=== PATIENT | female | born 1935 ===

== ENCOUNTER 2016-06-30 16:59 | Observation (INO) | payer MEDICARE, OTHER ==
[2016-06-30] MEDS ORDERED: Sodium Chloride 0.9% 1,000 ML IV STA ×2 (17:35→19:15)
[2016-06-30] MEDS ORDERED: Aspirin 325 mg EC Tablets PO ONE (17:45)
--- NOTE | 2016-06-30 17:49 | ED PDOC ---
HPI: Chest Pain Time Seen by Provider: 06/30/16 17:09 Chief Complaint (Nursing): Chest Pain Chief Complaint (Provider): chest pressure History Per: Patient History/Exam Limitations: no limitations Onset/Duration Of Symptoms: Days (x 2) Quality: Burning (epigastric), Pressure (chest) Additional Complaint(s): Alma Delia Edmonds is a 81 year old female, with an extensive previous medical history including atrial fibrillation CABG, diabetes, hypertension and asthma, who presents to the ED with complaints of epigastric burning ongoing for the past 2 days. Pt reports associated symptoms of chest pressure and slight shortness of breath. Pt reports symptoms have progressively worsened since onset. Pt denies any cough, fever or vomiting. Pt notes a decrease in her appetite. Pt denies any additional medical complaints at this time. PMD: none provided Past Medical History Reviewed: Historical Data, Nursing Documentation, Vital Signs Vital Signs: Last Vital Signs Temp 98.1 F 06/30/16 17:06 Pulse 96 H 06/30/16 17:06 Resp 16 06/30/16 17:06 BP 151/93 H 06/30/16 17:06 Pulse Ox 99 06/30/16 17:55 - Medical History PMH: Anemia, Anxiety, Arthritis, Asthma, Atrial Fibrillation, CAD, Cardia Arrhythmia (Afib), CHF, Diabetes (type II), Fractures, Gastritis, HTN, Hypercholesterolemia Denies: COPD, HIV, Hypothyroidism, Chronic Kidney Disease, Rheumatoid Arthritis - Surgical History Surgical History: CABG, Coronary Stent, Hernia Repair, Pacemaker, - Family History Family History: States: Unknown Family Hx - Immunization History Hx Tetanus Toxoid Vaccination: No Hx Influenza Vaccination: Yes Hx Pneumococcal Vaccination: Yes - Home Medications Home Medications: Ambulatory Orders Medication Instructions Recorded Alprazolam [Xanax] 0.25 mg PO DAILY 05/20/16 Carvedilol [Coreg] 6.25 mg PO Q12H 05/20/16 Furosemide [Lasix] 20 mg PO BID 05/20/16 Glipizide [Glipizide Xl] 5 mg PO BID 05/20/16 Losartan Potassium [Cozaar] 25 mg PO DAILY 05/20/16 Potassium Chloride [Klor-Con 10 meq PO DAILY 05/20/16 Sprinkle] SITagliptin [Januvia] 100 mg PO DAILY 05/20/16 Warfarin [Coumadin] 2 mg PO DAILY 05/20/16 Ciprofloxacin [Cipro] 250 mg PO Q12 #10 tab 05/22/16 - Allergies Allergies/Adverse Reactions: Allergies Allergy/AdvReac Type Severity Reaction Status Date / Time dust Allergy Mild RASH Uncoded 02/11/16 15:43 Review of Systems ROS Statement: Except As Marked, All Systems Reviewed And Found Negative Constitutional: Negative for: Fever Cardiovascular: Positive for: Chest Pain ("pressure") Respiratory: Positive for: Shortness of Breath (slight). Negative for: Cough Gastrointestinal: Positive for: Abdominal Pain (epigastric burning ). Negative for: Vomiting Physical Exam - Reviewed Nursing Documentation Reviewed: Yes Vital Signs Reviewed: Yes - Physical Exam Appears: Positive for: Well, Non-toxic, No Acute Distress Head Exam: Positive for: ATRAUMATIC, NORMAL INSPECTION, NORMOCEPHALIC Skin: Positive for: Normal Color, Warm, Dry Cardiovascular/Chest: Positive for: Regular Rate, Rhythm, Irregularly Irregular Respiratory: Positive for: Rhonchi (scattered). Negative for: Decreased Breath Sounds, Accessory Muscle Use, Wheezing, Respiratory Distress Gastrointestinal/Abdominal: Positive for: Normal Exam, Bowel Sounds, Soft. Negative for: Tenderness Back: Positive for: Normal Inspection Extremity: Positive for: Normal ROM Neurologic/Psych: Positive for: Alert, Oriented - Laboratory Results Result Diagrams: 06/30/16 17:37 06/30/16 17:37 - ECG O2 Sat by Pulse Oximetry: 99 (RA) Pulse Ox Interpretation: Normal Medical Decision Making Medical Decision Making: Initial Plan: * EKG * CXR * Troponin I * labs * IV NS 1,000 ml at 100 ml/hr * pepcid * aspirin * prothrombin time * reevaluation Scribe Attestation: Documented by Sveta Espinosa, acting as a scribe for Duran Moreau MD. Provider Scribe Attestation: All medical record entries made by the Scribe were at my direction and personally dictated by me. I have reviewed the chart and agree that the record accurately reflects my personal performance of the history, physical exam, medical decision making, and the department course for this patient. I have also personally directed, reviewed, and agree with the discharge instructions and disposition. Disposition - Clinical Impression Clinical Impression: Chest pain, Atrial fibrillation, Dehydration, Acute hyponatremia - Patient ED Disposition Is Patient to be Admitted: Yes - Disposition Disposition Time: 19:18 Condition: FAIR - Pt Status Changed To: Hospital Disposition Of: Observation - POA Present On Arrival: None
[2016-06-30 18:38] LABS: BASO # 0.1 K/uL (0.0-0.2); BASO % 1.3 % (0.0-2.0); EOS # 0.1 K/uL (0.0-0.7); EOS % 0.7 % (0.0-4.0); HEMATOCRIT 39.4 % (34.0-47.0); LYMPH # 0.9 K/uL (1.0-4.3); LYMPH % 10.8 % (20.0-40.0); MEAN CELL VOLUME 92.1 fl (81.0-99.0); MEAN CORPUSCULAR HEMOGLOBIN 30.7 pg (27.0-31.0); MEAN CORPUSCULAR HGB CONC 33.4 g/dL (33.0-37.0); MONO # 0.8 K/uL (0.0-0.8); MONO % 10.4 % (0.0-10.0); NEUT # 6.1 K/uL (1.8-7.0); NEUT % 76.8 % (50.0-75.0); RED CELL DISTRIBUTION WIDTH 15.4 % (11.5-14.5)
[2016-06-30 18:57] LABS: ALKALINE PHOSPHATASE 137 U/L (38-126); ALT/SGPT 38 U/L (9-52); AST/SGOT 46 U/L (14-36); BILIRUBIN,TOTAL 0.9 mg/dl (0.2-1.3); BLOOD UREA NITROGEN 37 mg/dl (7-17); CALCIUM 9.9 mg/dL (8.4-10.2); CARBON DIOXIDE 26 mmol/L (22-30); CHLORIDE 93 mmol/L (98-107); GFR AFRICAN-AMERICAN > 60; GLUCOSE,RANDOM 174 mg/dL (65-105); POTASSIUM 4.9 MMOL/L (3.6-5.0); SODIUM 130 mmol/l (132-148)
[2016-07-01] MEDS ORDERED: Sodium Chloride 0.9% 1,000 ML IV SCH (00:15)
[2016-07-01 05:12] VITALS: BMI 18.7
--- NOTE | 2016-07-01 07:14 | CARD ---
APPROVED REPORT EKG Measurement Heart [id number] <Conclusion> Atrial fibrillation Left ventricular hypertrophy with QRS widening LBBB Abnormal ECG
[2016-07-01 07:31] LABS: HEMATOCRIT 35.3 % (34.0-47.0); MEAN CELL VOLUME 91.8 fl (81.0-99.0); MEAN CORPUSCULAR HEMOGLOBIN 30.7 pg (27.0-31.0); MEAN CORPUSCULAR HGB CONC 33.4 g/dL (33.0-37.0); RED CELL DISTRIBUTION WIDTH 15.2 % (11.5-14.5)
[2016-07-01 07:51] LABS: PARTIAL THROMBOPLASTIN TIME 34.5 SECONDS (23.3-32.5)
[2016-07-01 08:06] LABS: ALKALINE PHOSPHATASE 112 U/L (38-126); ALT/SGPT 30 U/L (9-52); AST/SGOT 36 U/L (14-36); BLOOD UREA NITROGEN 26 mg/dl (7-17); CALCIUM 9.2 mg/dL (8.4-10.2); CARBON DIOXIDE 25 mmol/L (22-30); CHLORIDE 101 mmol/L (98-107); GFR AFRICAN-AMERICAN > 60; GLUCOSE,RANDOM 83 mg/dL (65-105); POTASSIUM 4.2 MMOL/L (3.6-5.0); SODIUM 137 mmol/l (132-148); TOTAL PROTEIN 7.4 G/DL (6.3-8.2)
[2016-07-01] MEDS ORDERED: POTASSIUM CHLORIDE 10 MEQ PO SCH (09:00)
[2016-07-01] MEDS: GlipiZIDE 5 mg SR Tab PO SCH ×2 (10:01→17:07)
[2016-07-01] MEDS: Potassium Chloride 10 mEq ER Tab PO SCH (10:02)
[2016-07-01] MEDS: Pantoprazole 40 mg EC Tab PO SCH (10:02)
--- NOTE | 2016-07-01 13:30 | RAD ---
Indication: Chest pain Chest x-ray Comparison: Chest x-ray and CT abdomen and pelvis with contrast both performed 05/20/16 Findings: Median sternotomy wires with evidence of CABG. Borderline cardiomegaly. Right medial lung apex density may reflect tortuous vasculature exaggerated by patient obliquity. Mild pulmonary venous congestion. Bilateral hilar prominence. No significant pleural effusion. No definite pneumothorax. Please note that chest x-ray has limited sensitivity for the detection of pulmonary masses. Limited visualization of the upper abdomen reveals elevation of the right hemidiaphragm. Lucency at the right upper abdomen may reflect air within colon as is seen in Chilaiditi's syndrome however correlate clinically to exclude possibility of free air. Abdominal aorta bi-iliac stent partially imaged on lateral view. Osseous demineralization. Multilevel degenerative changes. Loss of vertebral body heights compatible with compression fractures. Impression: Mild pulmonary venous congestion. Bilateral hilar prominence. Indeterminate medial right upper lobe lung density may reflect tortuous vasculature exaggerated by patient obliquity ; CT chest with contrast may be considered for further assessment. Limited visualization of the upper abdomen reveals elevation of the right hemidiaphragm. Lucency at the right upper abdomen may reflect air within colon as is seen in Chilaiditi's syndrome however correlate clinically to exclude possibility of free air. Further imaging with upper right abdominal radiograph may be considered. Alternatively if a CT of the chest is ordered to assess for medial right upper lobe lung density, upper abdomen will be included for assessment. Additional findings as above. Case discussed with ROBIN Ariza on 07/01/16 at 1:17 p.m.. Study was also placed in PA review folder.
--- NOTE | 2016-07-01 19:17 | CP.PCM.CON ---
History of Present Illness - History of Present Illness History of Present Illness: CC: Chest and back pain. HPI: This is a very pleasant 81 year old female who is evaluated for complaints of constant chest and back pain without trauma. He symptoms are at rest and do not radiate. She states that after she took her diabetes medications, she felt very hot inside and developed chest pain. She has had a fair appetite and denies nausea, vomiting or abdominal pain. She has been complaint with her medications and feels that she maybe taking too many meds. An ECG reveals atrial fibrillation at 98 BPM with LBBB. Chest Xray has evidence of mild CHF. She was felt to be dehydrated on admission and IVF was instituted. Review of Systems - Constitutional Constitutional: Fatigue, Lethargy, Malaise, Weakness - EENT Additional comments: Negative. - Cardiovascular Cardiovascular: Irregular Heart Rhythm - Respiratory Additional comments: Negative. - Gastrointestinal Additional comments: Negative. - Genitourinary Additional comments: Negative. - Musculoskeletal Musculoskeletal: Back Pain, Muscle Weakness, Myalgias - Integumentary Additional comments: Negative. - Neurological Additional comments: Negative. - Psychiatric Additional comments: Negative. - Endocrine Endocrine: Fatigue, Palpitations - Hematologic/Lymphatic Additional comments: Negative. Past Patient History - Infectious Disease Hx of Infectious Diseases: None - Tetanus Immunizations Tetanus Immunization: Unknown - Past Medical History & Family History Past Medical History?: Yes - Past Social History Smoking Status: Never Smoked Alcohol: None - CARDIAC Hx Cardiac Disorders: Yes (AFIB, HTN, CHF, HIGH CHOLESTEROL) Hx Atrial Fibrillation: Yes Hx Cardia Arrhythmia: Yes Hx Circulatory Problems: Yes Hx Congestive Heart Failure: Yes Hx Hypertension: Yes - PULMONARY Hx Asthma: Yes Hx Chronic Obstructive Pulmonary Disease (COPD): No - NEUROLOGICAL Hx Neurological Disorder: No - HEENT Hx HEENT Problems: Yes - RENAL Hx Chronic Kidney Disease: No - ENDOCRINE/METABOLIC Hx Endocrine Disorders: Yes (DM) Hx Diabetes Mellitus Type 2: Yes - HEMATOLOGICAL/ONCOLOGICAL Hx Blood Disorders: Yes (ANEMIA) - INTEGUMENTARY Hx Dermatological Problems: No - MUSCULOSKELETAL/RHEUMATOLOGICAL Hx Arthritis: Yes Hx Falls: No - GASTROINTESTINAL Hx Gastritis: Yes - GENITOURINARY/GYNECOLOGICAL Hx Genitourinary Disorders: Yes - PSYCHIATRIC Hx Anxiety: Yes Hx Substance Use: No - SURGICAL HISTORY Hx Angiogram: Yes Hx Coronary Artery Bypass Graft: Yes Hx Coronary Stent: Yes Other/Comment: Right lower extremity fasciotomy - ANESTHESIA Hx Anesthesia: Yes Hx Anesthesia Reactions: No Hx Malignant Hyperthermia: No Meds Allergies/Adverse Reactions: Allergies Allergy/AdvReac Type Severity Reaction Status Date / Time dust Allergy Mild RASH Uncoded 02/11/16 15:43 - Medications Medications: Current Medications Alprazolam (Xanax) 0.25 mg PO DAILY [facility] Stop: 07/08/16 09:01 Last Admin: 07/01/16 10:04 Dose: 0.25 mg Carvedilol (Coreg) 6.25 mg PO Q12H [facility] Last Admin: 07/01/16 12:40 Dose: 6.25 mg Glipizide (Glucotrol Xl) 5 mg PO BID [facility] Last Admin: 07/01/16 17:07 Dose: 5 mg Sodium Chloride (Sodium Chloride 0.9%) 1,000 mls @ 75 mls/hr IV .[id number] [facility] Stop: 07/02/16 00:16 Last Admin: 07/01/16 01:29 Dose: 75 mls/hr Losartan Potassium (Cozaar) 25 mg PO DAILY [facility] Last Admin: 07/01/16 10:00 Dose: 25 mg Pantoprazole Sodium (Protonix Ec Tab) 40 mg PO DAILY [facility] Last Admin: 07/01/16 10:02 Dose: 40 mg Potassium Chloride (Klor-Con 10) 10 meq PO DAILY [facility] Last Admin: 07/01/16 10:02 Dose: 10 meq Sitagliptin Phosphate (Januvia) 100 mg PO DAILY [facility] Last Admin: 07/01/16 10:02 Dose: 100 mg Warfarin Sodium (Coumadin) 2 mg PO QD5 [facility] PRN Reason: Protocol Stop: 07/02/16 17:01 Physical Exam - Constitutional Appears: Cachectic, Chronically Ill - Head Exam Head Exam: NORMAL INSPECTION, NORMOCEPHALIC - Eye Exam Eye Exam: Normal appearance - ENT Exam ENT Exam: Mucous Membranes Dry - Neck Exam Neck exam: Positive for: Full Rom, Normal Inspection - Respiratory Exam Additional comments: Bilateral fines crackles posteriorly. - Cardiovascular Exam Cardiovascular Exam: Irregular Rhythm, +S1, +S2, Systolic Murmur - GI/Abdominal Exam GI & Abdominal Exam: Soft - Rectal Exam Rectal Exam: Deferred - Extremities Exam Extremities exam: Positive for: normal capillary refill, normal inspection, pedal pulses present - Back Exam Back exam: NORMAL INSPECTION - Neurological Exam Neurological exam: Alert, Oriented x3 - Psychiatric Exam Psychiatric exam: Normal Affect, Normal Mood - Skin Skin Exam: Dry, Normal Color, Warm Results - Vital Signs Recent Vital Signs: Last Vital Signs Temp 97.2 F L 07/01/16 16:44 Pulse 65 07/01/16 16:44 Resp 22 07/01/16 16:44 BP 129/79 07/01/16 16:44 Pulse Ox 98 07/01/16 16:44 - Labs Result Diagrams: 07/01/16 07:00 07/01/16 07:00 Labs: Laboratory Results - last 24 hr 07/01/16 07/01/16 07/01/16 01:40 07:00 07:02 WBC 6.0 RBC 3.85 Hgb 11.8 L Hct 35.3 MCV 91.8 MCH 30.7 MCHC 33.4 RDW 15.2 H Plt Count 107 L D PT 21.3 H INR 2.05 H APTT 34.5 H Sodium 137 Potassium 4.2 Chloride 101 Carbon Dioxide 25 Anion Gap 15 BUN 26 H Creatinine 0.5 L Est GFR ( Amer) > 60 Est GFR (Non-Af Amer) > 60 POC Glucose (mg/dL) 79 Random Glucose 83 Calcium 9.2 Total Bilirubin 1.0 AST 36 D ALT 30 Alkaline Phosphatase 112 Troponin I 0.0140 Total Protein 7.4 Albumin 3.7 Globulin 3.8 Albumin/Globulin Ratio 1.0 07/01/16 07/01/16 07/01/16 10:27 10:57 16:31 WBC RBC Hgb Hct MCV MCH MCHC RDW Plt Count PT INR APTT Sodium Potassium Chloride Carbon Dioxide Anion Gap BUN Creatinine Est GFR ( Amer) Est GFR (Non-Af Amer) POC Glucose (mg/dL) 180 H 103 Random Glucose Calcium Total Bilirubin AST ALT Alkaline Phosphatase Troponin I < 0.0120 Total Protein Albumin Globulin Albumin/Globulin Ratio Assessment & Plan - Assessment and Plan (Free Text) Assessment: Atypical chest pain Back pain Arthritis CHF CAD, asymptomatic CABG Diabetes Hypertension Dyslipidemia Atrial fibrillation, rate controlled Anemia Failure to thrive Plan: Discontinue IVF Continue present cardiac medications Low dose lasix PT/OT Monitor INR Thank you for allowing me to participate in the care of this very pleasant patient - Date & Time Date: 07/01/16 Time: 19:26
--- NOTE | 2016-07-01 19:39 | CP.PCM.HP ---
History of Present Illness - History of Present Illness History of Present Illness: 81 y/o female known to me; pmhx of a-fib, chf, dmII, htn, acute on chronic hyponatremia; admitted for chest discomfort, weakness, not eating. never smoker or etoh. fam hx nc, meds, see reconcile list. nkda. PE: Vss afebrile. head; neg jvd flat. Pos [place] Heart Irreg Irreg, ns1s2 neg m Lungs, faint crackles at bases which changed with cough maneuver (?atelectasis) no c,c,e neuro gnf labs: see below, today's improved. a/p Aforementioned Dx's and Acut on chronic hyponatremia and hypovolemia dehydration. cont current meds. hold fluids since patient has been hydrated nicely and all number have improved. awaiting cario consult. Will speak with cardio about reducing dose of furosemide. may d/c in am if parameters are acceptable. Past Patient History - Infectious Disease Hx of Infectious Diseases: None - Tetanus Immunizations Tetanus Immunization: Unknown - Past Medical History & Family History Past Medical History?: Yes - Past Social History Smoking Status: Never Smoked Alcohol: None - CARDIAC Hx Cardiac Disorders: Yes (AFIB, HTN, CHF, HIGH CHOLESTEROL) Hx Atrial Fibrillation: Yes Hx Cardia Arrhythmia: Yes Hx Circulatory Problems: Yes Hx Congestive Heart Failure: Yes Hx Hypertension: Yes - PULMONARY Hx Asthma: Yes Hx Chronic Obstructive Pulmonary Disease (COPD): No - NEUROLOGICAL Hx Neurological Disorder: No - HEENT Hx HEENT Problems: Yes - RENAL Hx Chronic Kidney Disease: No - ENDOCRINE/METABOLIC Hx Endocrine Disorders: Yes (DM) Hx Diabetes Mellitus Type 2: Yes - HEMATOLOGICAL/ONCOLOGICAL Hx Blood Disorders: Yes (ANEMIA) - INTEGUMENTARY Hx Dermatological Problems: No - MUSCULOSKELETAL/RHEUMATOLOGICAL Hx Arthritis: Yes Hx Falls: No - GASTROINTESTINAL Hx Gastritis: Yes - GENITOURINARY/GYNECOLOGICAL Hx Genitourinary Disorders: Yes - PSYCHIATRIC Hx Anxiety: Yes Hx Substance Use: No - SURGICAL HISTORY Hx Angiogram: Yes Hx Coronary Artery Bypass Graft: Yes Hx Coronary Stent: Yes Other/Comment: Right lower extremity fasciotomy - ANESTHESIA Hx Anesthesia: Yes Hx Anesthesia Reactions: No Hx Malignant Hyperthermia: No Meds Allergies/Adverse Reactions: Allergies Allergy/AdvReac Type Severity Reaction Status Date / Time dust Allergy Mild RASH Uncoded 02/11/16 15:43 Results - Vital Signs Recent Vital Signs: Last Vital Signs Temp 97.2 F L 07/01/16 16:44 Pulse 65 07/01/16 16:44 Resp 22 07/01/16 16:44 BP 129/79 07/01/16 16:44 Pulse Ox 98 07/01/16 16:44 - Labs Result Diagrams: 07/01/16 07:00 07/01/16 07:00 Labs: Laboratory Results - last 24 hr 07/01/16 07/01/16 07/01/16 01:40 07:00 07:02 WBC 6.0 RBC 3.85 Hgb 11.8 L Hct 35.3 MCV 91.8 MCH 30.7 MCHC 33.4 RDW 15.2 H Plt Count 107 L D PT 21.3 H INR 2.05 H APTT 34.5 H Sodium 137 Potassium 4.2 Chloride 101 Carbon Dioxide 25 Anion Gap 15 BUN 26 H Creatinine 0.5 L Est GFR ( Amer) > 60 Est GFR (Non-Af Amer) > 60 POC Glucose (mg/dL) 79 Random Glucose 83 Calcium 9.2 Total Bilirubin 1.0 AST 36 D ALT 30 Alkaline Phosphatase 112 Troponin I 0.0140 Total Protein 7.4 Albumin 3.7 Globulin 3.8 Albumin/Globulin Ratio 1.0 07/01/16 07/01/16 07/01/16 10:27 10:57 16:31 WBC RBC Hgb Hct MCV MCH MCHC RDW Plt Count PT INR APTT Sodium Potassium Chloride Carbon Dioxide Anion Gap BUN Creatinine Est GFR ( Amer) Est GFR (Non-Af Amer) POC Glucose (mg/dL) 180 H 103 Random Glucose Calcium Total Bilirubin AST ALT Alkaline Phosphatase Troponin I < 0.0120 Total Protein Albumin Globulin Albumin/Globulin Ratio
[2016-07-01 20:24] VITALS: TEMP 98.3
[2016-07-02 05:31] VITALS: RESP 20
[2016-07-02 08:13] VITALS: PULSE 81; O2SAT 94
[2016-07-02] MEDS: GlipiZIDE 5 mg SR Tab PO SCH (09:27)
[2016-07-02] MEDS: Pantoprazole 40 mg EC Tab PO SCH (09:28)
[2016-07-02] MEDS: Potassium Chloride 10 mEq ER Tab PO SCH (09:28)
[2016-07-02 09:30] VITALS: BP 122/73
== END 2016-07-02 12:00 | disposition home or self-care (01) ==
LOC: H.ER 16:59 → H.ERHOLD 19:14 → H.ICU/CCU 07-01 04:30
PROVIDERS: ADMIT Internal Medicine Pulmonary Disease; ATTEND Internal Medicine Pulmonary Disease
DX: R07.89 Other chest pain (principal); I48.91 Unspecified atrial fibrillation; Z95.1 Presence of aortocoronary bypass graft; D64.9 Anemia, unspecified; I25.10 Atherosclerotic heart disease of native coronary artery without angina pectoris; Z95.5 Presence of coronary angioplasty implant and graft; E78.00 Pure hypercholesterolemia, unspecified; E78.5 Hyperlipidemia, unspecified; E11.9 Type 2 diabetes mellitus without complications; Z95.0 Presence of cardiac pacemaker; Z79.01 Long term (current) use of anticoagulants; I50.9 Heart failure, unspecified; I10 Essential (primary) hypertension; R62.7 Adult failure to thrive; E86.0 Dehydration; E87.1 Hypo-osmolality and hyponatremia; E86.1 Hypovolemia; M19.90 Unspecified osteoarthritis, unspecified site; M54.9 Dorsalgia, unspecified
CPT/HCPCS: 71020; 80053; 82948; 84484; 85025; 85027; 85610; 85730; 87081; 93005; 96374; 97161; 99285; G0378; G8978; G8979; G8980; J7040

== ENCOUNTER 2016-08-20 12:22 | Inpatient (IN) | payer MEDICARE, OTHER ==
[2016-08-20 12:22] VITALS: BMI 18.3
--- NOTE | 2016-08-20 13:28 | CT ---
PROCEDURE: CT HEAD WITHOUT CONTRAST. HISTORY: Generalized weakness COMPARISON: Images from noncontrast head CT performed 01/31/11 TECHNIQUE: Axial computed tomography images were obtained through the head/brain without intravenous contrast. Radiation dose: Total exam DLP = 993. 50 mGy-cm. This CT exam was performed using one or more of the following dose reduction techniques: Automated exposure control, adjustment of the mA and/or kV according to patient size, and/or use of iterative reconstruction technique. FINDINGS: Streak artifact obscures evaluation of the skullbase. HEMORRHAGE: No intracranial hemorrhage. BRAIN: Diffuse atrophy with prominence of the ventricles and sulci noted. No mass effect or edema. Bilateral basal ganglia calcifications. Intracranial atherosclerotic calcification. Scattered periventricular and subcortical white matter hypodensities, which are nonspecific, but often seen with chronic microvascular ischemic disease. Please note that MRI with diffusion imaging is more sensitive in the detection of acute ischemic event. VENTRICLES: No hydrocephalus. CALVARIUM: Unremarkable. PARANASAL SINUSES: Unremarkable as visualized. No significant inflammatory changes. MASTOID AIR CELLS: Unremarkable as visualized. No inflammatory changes. OTHER FINDINGS: None. IMPRESSION: Generalized atrophy. Nonspecific white matter changes.
[2016-08-20 13:29] LABS: BASO % 0.5 % (0.0-2.0); EOS % 0.6 % (0.0-4.0); LYMPH # 0.5 K/uL (1.0-4.3); LYMPH % 7.6 % (20.0-40.0); MEAN CORPUSCULAR HEMOGLOBIN 30.6 pg (27.0-31.0); MEAN CORPUSCULAR HGB CONC 33.3 g/dL (33.0-37.0); MEAN PLATELET VOLUME 9.4 fl (7.2-11.7); MONO # 0.7 K/uL (0.0-0.8); MONO % 10.2 % (0.0-10.0); NEUT # 5.8 K/uL (1.8-7.0); NEUT % 81.1 % (50.0-75.0); PLATELET COUNT 139 K/uL (130-400); RED CELL DISTRIBUTION WIDTH 15.1 % (11.5-14.5); WHITE BLOOD COUNT 7.1 K/uL (4.8-10.8)
[2016-08-20 13:42] LABS: ALB/GLOB RATIO 1.1 (1.0-2.1); ALKALINE PHOSPHATASE 148 U/L (38-126); ALT/SGPT 34 U/L (9-52); AST/SGOT 49 U/L (14-36); BILIRUBIN,TOTAL 1.2 mg/dl (0.2-1.3); BLOOD UREA NITROGEN 25 mg/dl (7-17); CALCIUM 9.8 mg/dL (8.4-10.2); CARBON DIOXIDE 28 mmol/L (22-30); CHLORIDE 92 mmol/L (98-107); GFR AFRICAN-AMERICAN > 60; GLUCOSE,RANDOM 196 mg/dL (65-105); POTASSIUM 4.9 MMOL/L (3.6-5.0); SODIUM 130 mmol/l (132-148); TOTAL PROTEIN 8.5 G/DL (6.3-8.2)
[2016-08-20 13:57] LABS: PARTIAL THROMBOPLASTIN TIME 33.1 SECONDS (23.3-32.5)
--- NOTE | 2016-08-20 14:10 | RAD ---
HISTORY: Generalized weakness COMPARISON: Chest x-ray performed 06/30/16 TECHNIQUE: Chest, one view. FINDINGS: LUNGS: Mild pulmonary venous congestion. Bilateral hilar prominence. Please note that chest x-ray has limited sensitivity for the detection of pulmonary masses. PLEURA: No significant pleural effusion identified. No definite pneumothorax . CARDIOVASCULAR: Median sternotomy wires with evidence of CABG. Borderline cardiomegaly. OSSEOUS STRUCTURES: Right calcific tendinitis. Degenerative changes of the spine and shoulders. Osseous demineralization. VISUALIZED UPPER ABDOMEN: Elevated right hemidiaphragm. OTHER FINDINGS: None. IMPRESSION: Mild pulmonary venous congestion. Bilateral hilar prominence.
--- NOTE | 2016-08-20 14:44 | ED PDOC ---
HPI: General Adult Time Seen by Provider: 08/20/16 12:32 Chief Complaint (Nursing): Weakness/Neurological Deficit Chief Complaint (Provider): Generalized weakness History Per: Patient, Family History/Exam Limitations: no limitations Onset/Duration Of Symptoms: Days (2) Have you had recent travel within the past 21 days to any of the following countries: [place], [place], [place] or [place]?: No Additional Complaint(s): Pt reports generalized weakness X 2 days, associated with back pain and minimal SOB. Son states she develops similar sxs every few months. Pt normally ambulates with a walker at home. Pt also c/o RLE pain (chronic) s/p ? surgery years ago. Denies CP, cough, fever, nausea, vomiting, abd pain, diarrhea. Past Medical History Reviewed: Nursing Documentation, Vital Signs Vital Signs: Last Vital Signs Temp 97.9 F 08/23/16 17:00 Pulse 86 08/23/16 17:00 Resp 18 08/23/16 17:00 BP 116/68 08/23/16 17:00 Pulse Ox 95 08/23/16 17:00 - Medical History PMH: Anemia, Anxiety, Arthritis, Asthma, Atrial Fibrillation, CAD, Cardia Arrhythmia, CHF, Diabetes, Fractures, Gastritis, HTN, Hypercholesterolemia Denies: COPD, HIV, Hypothyroidism, Chronic Kidney Disease, Rheumatoid Arthritis - Surgical History Surgical History: CABG, Coronary Stent, Hernia Repair, Pacemaker, - Family History Family History: States: Unknown Family Hx - Social History Current smoker - smoking cessation education provided: No Alcohol: None - Immunization History Hx Tetanus Toxoid Vaccination: No Hx Influenza Vaccination: Yes Hx Pneumococcal Vaccination: Yes - Home Medications Home Medications: Ambulatory Orders Medication Instructions Recorded Acetaminophen [Tylenol Extra 500 mg PO Q6H PRN 08/01/15 Strength] Docusate [Colace] 100 mg PO DAILY 08/01/15 Carvedilol [Coreg] 6.25 mg PO Q12H 05/20/16 Losartan Potassium [Cozaar] 25 mg PO DAILY 05/20/16 SITagliptin [Januvia] 100 mg PO DAILY 05/20/16 ALPRAZolam [Xanax] 0.125 mg PO HS PRN 08/20/16 Famotidine [Pepcid] 40 mg PO DAILY 08/20/16 Furosemide [Lasix] 20 mg PO DAILY 08/20/16 GlipiZIDE [Glucotrol] 5 mg PO BID 08/20/16 Polyethylene Glycol 3350 [Miralax] 17 gm PO DAILY PRN 08/20/16 Potassium Chloride [Klor-Con 10] 10 meq PO QPM 08/20/16 Zolpidem [Ambien] 5 mg PO HS tab 08/23/16 - Allergies Allergies/Adverse Reactions: Allergies Allergy/AdvReac Type Severity Reaction Status Date / Time dust Allergy Mild RASH Uncoded 08/23/16 16:49 Review of Systems Constitutional: Negative for: Fever, Chills Cardiovascular: Negative for: Chest Pain, Palpitations Respiratory: Positive for: Shortness of Breath. Negative for: Cough, Hemoptysis , Sputum, Wheezing Gastrointestinal: Negative for: Nausea, Vomiting, Abdominal Pain, Diarrhea Musculoskeletal: Positive for: Back Pain, Leg Pain Skin: Negative for: Rash, Lesions Neurological: Positive for: Weakness (Generalized). Negative for: Numbness, Incoordination, Change in Speech, Confusion, Seizures, Altered Mental Status, Headache, Dizziness Physical Exam - Reviewed Nursing Documentation Reviewed: Yes Vital Signs Reviewed: Yes - Physical Exam Appears: Positive for: Well, No Acute Distress (Thin) Head Exam: Positive for: ATRAUMATIC, NORMAL INSPECTION Skin: Positive for: Normal Color, Warm, Dry Eye Exam: Positive for: Normal appearance, EOMI, PERRL Neck: Positive for: Normal, Painless ROM, Supple Cardiovascular/Chest: Positive for: Regular Rate, Rhythm Respiratory: Positive for: Crackles (Bilateral). Negative for: Decreased Breath Sounds, Accessory Muscle Use, Wheezing Gastrointestinal/Abdominal: Positive for: Normal Exam, Bowel Sounds, Soft Extremity: Positive for: Normal ROM, Other (Chronic-appearing hyperpigmentation distal RLE). Negative for: Tenderness, Pedal Edema, Calf Tenderness, Deformity , Swelling Neurologic/Psych: Positive for: Alert, shoe parts caser II-XII, Oriented. Negative for: Motor/Sensory Deficits, Aphasia, Facial Droop - Laboratory Results Result Diagrams: 08/22/16 05:05 08/21/16 05:05 - ECG O2 Sat by Pulse Oximetry: 100 Medical Decision Making Medical Decision Makin yo with generalized weakness, SOB and RLE pain. - labs - EKG - CXR - CT chest - Doppler ultrasound Disposition - Clinical Impression Clinical Impression: CHF (congestive heart failure) - Disposition Disposition: Transfer of Care Disposition Time: 15:00 Condition: STABLE Patient Signed Over To: Lluvia Angulo
[2016-08-20 14:59] LABS: BASOPHIL 1 % (0-2); NEUTROPHIL 85 % (42-75); TOTAL CELLS COUNTED 100
[2016-08-20 15:00] LABS: LARGE PLATELETS PRESENT
[2016-08-20 15:24] LABS: URINE COLOR YELLOW (YELLOW)
--- NOTE | 2016-08-20 15:24 | US ---
PROCEDURE: Right lower extremity venous duplex Doppler. HISTORY: Pain COMPARISON: None available. TECHNIQUE: Common femoral, superficial femoral, popliteal and posterior tibial veins were evaluated. Flow was assessed with color Doppler, compressibility, assessment of phasic flow and augmentation response. FINDINGS: COMMON FEMORAL VEIN: Unremarkable. SUPERFICIAL FEMORAL VEIN: Unremarkable. POPLITEAL VEIN: Unremarkable. POSTERIOR TIBIAL VEIN: Unremarkable. OTHER FINDINGS: None. IMPRESSION: No evidence of deep venous thrombosis in the right lower extremity.
[2016-08-20 15:25] LABS: RBC URINE 2 /hpf (0-3); URINE BILIRUBIN NEGATIVE (NEGATIVE); URINE BLOOD NEGATIVE (NEGATIVE); URINE GLUCOSE (UA) NEGATIVE (Normal); URINE KETONE NEGATIVE (NEGATIVE); URINE LEUKOCYTE ESTERASE NEGATIVE Leu/uL (Negative); URINE PROTEIN NEGATIVE (NEGATIVE); URINE UROBILINOGEN 0.2-1.0 mg/dL (0.2-1.0); WBC URINE 1 /hpf (0-5)
[2016-08-20] MEDS ORDERED: Iodixanol 320 MG/ML 100 ML BOTTLE IV ONE (15:32)
[2016-08-20] MEDS ORDERED: Sodium Chloride 0.9% 50 ML IV ONE (15:32)
--- NOTE | 2016-08-20 17:28 | ED PDOC ---
- Laboratory Results Result Diagrams: 08/20/16 13:21 08/20/16 13:21 - ECG O2 Sat by Pulse Oximetry: 99 (RA) Pulse Ox Interpretation: Normal Medical Decision Making Medical Decision Makin:[address] Metz. Pending ER workup, reassessment, and final disposition. Addendum created by Hong Segura MD on 08/20/2016 6:17 PM Eastern Time ([place] & [place]) Upon review of the accompanying abdomen pelvis CT which includes the lower chest , the previously questioned filling defect in the anterolateral cusp of the pulmonary artery root is not seen and most likely represented delayed opacification of the cusp with contrast. There is no evidence of thrombus at this site. Additionally, the flow artifact noted in the main pulmonary artery and left main pulmonary artery is normal longer present on the delayed images. THIS REPORT CONTAINS FINDINGS THAT MAY BE CRITICAL TO PATIENT CARE. The findings were verbally communicated via telephone conference with Dr. Angulo at 6:15 PM EDT on 08/20/2016. The findings were acknowledged and understood. Initial Report created on 08/20/2016 6:05 PM Eastern Time ([place] & [place]) EXAM: CT Chest With Intravenous Contrast CLINICAL HISTORY: 81 years old female; Signs and symptoms; Other: Weakness; Shortness of breath; Additional info: Rle edema. Sent eYuly Colbert. Doc. With request TECHNIQUE: Multiplanar, multislice spiral CT scanning of the chest was performed following IV contrast administration from the sternal notch through the upper abdomen. Axial images were reconstructed at 1.25 mm intervals and slice thickness. Multiplanar reformatted images were created and reviewed. MIP reconstructed images were created and reviewed. This CT exam was performed using one or more of the following dose reduction techniques: automated exposure control, adjustment of the mA and/or kV according to patient size, and/or use of iterative reconstruction technique. Coronal and sagittal reformatted images were created and reviewed. CONTRAST: 80 mL of [id number] administered intravenously. COMPARISON: Comparison made with the report of the chest x-ray obtained earlier today; images unavailable. FINDINGS: Lungs: There are mild nonspecific patchy groundglass opacities in both lungs. There is mild bilateral multilobar atelectasis. There is no focal pneumonia or consolidation. Pleura: There is no pleural effusion. There is no pneumothorax. Heart: There is mild cardiomegaly. There are [place] coronary artery atherosclerotic calcifications.The patient is status post sternotomy for CABG surgery. There is no pericardial effusion. Pulmonary vasculature: There is heterogeneous opacification of the main pulmonary artery felt to represent flow artifact. However, there is a filling defect in the anterolateral cusp of the pulmonary artery worrisome for thrombus. The main pulmonary artery and left pulmonary arteries are enlarged suggestive of pulmonary arterial hypertension. There is no pulmonary embolism. Gisell and mediastinum: There is no hilar or mediastinal mass or adenopathy. There are mediastinal and left hilar calcified lymph nodes. Thoracic aorta/vascular: There is no thoracic aortic aneurysm or dissection. The imaged brachiocephalic arteries are unremarkable. Imaged upper abdomen: See accompanying abdomen pelvis CT report. Musculoskeletal system: There are multiple old thoracic vertebral body compression fractures. Chest/body wall soft tissues: Unremarkable Thyroid: There is a 3.8 x 2.3 cm right thyroid nodule with punctate calcifications. Recommend ultrasound correlation. IMPRESSION: No pulmonary embolism. Filling defect in the anterolateral cusp of the pulmonary artery worrisome for thrombus. Probable flow artifact in the main pulmonary artery. No pneumonia Mild nonspecific bilateral patchy groundglass opacities and mild bilateral multilobar atelectasis. Right thyroid nodule, recommend ultrasound correlation. Thank you for allowing us to participate in the care of your patient. Dictated and Authenticated by: Hong Segura MD 08/20/2016 6:05 PM Eastern Time ([place] & [place]) DW Dr Dunlap PMD. will give further orders when pt on floor. requests dr rodriguez for card Scribe Attestation: Documented by Rizwan Burgos, acting as a scribe for Lluvia Angulo MD. Provider Scribe Attestation: All medical record entries made by the Scribe were at my direction and personally dictated by me. I have reviewed the chart and agree that the record accurately reflects my personal performance of the history, physical exam, medical decision making, and the department course for this patient. I have also personally directed, reviewed, and agree with the discharge instructions and disposition. Disposition - Clinical Impression Clinical Impression: CHF (congestive heart failure) - POA Present On Arrival: None - Disposition Disposition: Hospitalized as Observation Patient Disposition Time: 17:00 Condition: GUARDED
[2016-08-20] MEDS ORDERED: Enoxaparin 40 mg Syringe SC STA ×2 (22:25→23:08)
[2016-08-20] MEDS ORDERED: POLYETHYLENE GLYCOL 3350 17 GM/Dose PACKET PO PRN (22:27)
[2016-08-21 07:39] LABS: HEMATOCRIT 38.3 % (34.0-47.0); MEAN CELL VOLUME 91.3 fl (81.0-99.0); MEAN CORPUSCULAR HEMOGLOBIN 30.6 pg (27.0-31.0); MEAN CORPUSCULAR HGB CONC 33.5 g/dL (33.0-37.0); RED CELL DISTRIBUTION WIDTH 14.9 % (11.5-14.5); WHITE BLOOD COUNT 6.4 K/uL (4.8-10.8)
[2016-08-21 07:41] LABS: ALKALINE PHOSPHATASE 133 U/L (38-126); ALT/SGPT 45 U/L (9-52); AST/SGOT 59 U/L (14-36); BILIRUBIN,TOTAL 0.9 mg/dl (0.2-1.3); BLOOD UREA NITROGEN 32 mg/dl (7-17); CALCIUM 9.9 mg/dL (8.4-10.2); CARBON DIOXIDE 32 mmol/L (22-30); CHLORIDE 89 mmol/L (98-107); GFR AFRICAN-AMERICAN > 60; GLUCOSE,RANDOM 45 mg/dL (65-105); MAGNESIUM 2.1 MG/DL (1.6-2.3); PHOSPHOROUS 4.5 mg/dl (2.5-4.5); SODIUM 135 mmol/l (132-148); TOTAL PROTEIN 8.1 G/DL (6.3-8.2)
--- NOTE | 2016-08-21 10:21 | CARD ---
APPROVED REPORT EKG Measurement Heart [id number] <Conclusion> Atrial fibrillation with rapid ventricular response Left bundle branch block Abnormal ECG
--- NOTE | 2016-08-21 12:42 | RAD ---
HISTORY: Congestive heart failure. Portable study 08:00 COMPARISON: August 20, 2016. FINDINGS: LUNGS: No active pulmonary disease. PLEURA: No significant pleural effusion identified, no pneumothorax apparent. CARDIOVASCULAR: Normal. OSSEOUS STRUCTURES: No significant abnormalities. VISUALIZED UPPER ABDOMEN: Normal. OTHER FINDINGS: None. IMPRESSION: No significant interval change compared to the prior examination(s).
--- NOTE | 2016-08-21 14:09 | CT ---
PROCEDURE: CT Chest, Abdomen and Pelvis with intravenous contrast HISTORY: RLE edema COMPARISON: 05/20/2016 CT abdomen and pelvis. TECHNIQUE: IV dose administered: 80 cc Visipaque 320. Mean Hounsfield unit values in the main pulmonary artery: 421.55 Radiation dose: Total exam DLP = 622.47 mGy-cm. This CT exam was performed using one or more of the following dose reduction techniques: Automated exposure control, adjustment of the mA and/or kV according to patient size, and/or use of iterative reconstruction technique. FINDINGS: CT CHEST WITH CONTRAST: LUNGS: Interstitial lung disease without focal infiltrate mass or other acute, significant pathologic process. MEDIASTINUM: Dilated main pulmonary artery 3.97 cm consistent with pulmonary arterial hypertension. LYMPH NODES: Unremarkable. PLEURA: Unremarkable. No pneumothorax. No pleural fluid. BONES: Unremarkable. OTHER FINDINGS: Enlargement of the right thyroid lobe. Elective ultrasound advised for further assessment. CT ABDOMEN AND PELVIS: LIVER: Hepatic steatosis. No focal masses. No intrahepatic bile duct dilatation or perihepatic ascites. GALLBLADDER AND BILE DUCTS: Unremarkable. PANCREAS: Unremarkable. No gross lesion or ductal dilatation. SPLEEN: Unremarkable. ADRENALS: Unremarkable. No mass. KIDNEYS AND URETERS: Unremarkable. No hydronephrosis. No solid mass. VASCULATURE: Infrarenal abdominal aortic aneurysm 6.9 by 6.8 cm. The length of the aneurysm is 5.8 cm cephalocaudal dimension. Stent graft identified. Focal hemorrhage, leak adjacent to the posterior aspect. Please refer to axial series 10 images 68 - 75. These are new findings compared to the prior study. There is no evidence of contrast/ blood I outside the confines of the [place] aorta. Stability with respect overall measurements of the aneurysm compared the prior study 05/20/2016. BOWEL: Unremarkable. No obstruction. No gross mural thickening. APPENDIX: No abnormalities to suggest acute appendicitis. No right lower quadrant inflammatory processes identified. PERITONEUM: Unremarkable. No free fluid. No free air. LYMPH NODES: Unremarkable. No enlarged lymph nodes. BLADDER: Unremarkable. REPRODUCTIVE: Unremarkable. BONES: No acute fracture. Osteopenia/multiple compression deformities thoracolumbar spine. OTHER FINDINGS: None. IMPRESSION: Evidence of extravasation of contrast/ leak from the posterior aspect of the stent graft. No evidence of contrast/ blood outside the confines of the abdominal aorta. Stable [place] aneurysm with measurements provided above. No evidence of thoracic aortic dissection or pulmonary embolism. Additional benign and/or incidental findings described above. Concordant results (preliminary interpretation) provided by [facility]. Procedure Completed: 16:12. Preliminary ([facility]) Report: Dictated and Authenticated: 18:05. Final Interpretation: 14:07. August 21, 2016.
[2016-08-21] MEDS: Potassium Chloride 10 mEq ER Tab PO SCH (18:13)
--- NOTE | 2016-08-21 21:24 | CP.PCM.HP ---
History of Present Illness - History of Present Illness History of Present Illness: 81 y/o female with pmhx of chf (diastolic dysfunction) a-fib on coumadin, HTN, DMII, SRINIVAS, admitted for several days of dyspnea and leg swelling. She denies being non compliant with diet and meds. She also has been complaining of epigastric burning. Neg Melena, neg N & V. NDKA Never smoker. Not ETOH. FH: NC She was found to have an elevated BNP in ER. S/ feeling a bit better today. O/ afebr, vss. Head: neg adeno pos kanu Heart Irr R and R, Ns1s2. Lungs, crackles throughout both lung felds. No c,c,e Neruo GNF. a/p, as mentioned. NADIA, 2/2 CHF (acute on chronic) A-Fib: DMII, HTN, SRINIVAS. Cont to maintain neg balance. Cardiology consultation. Cont PO lasix in view of labile BP. GI consult. Cont Rx for other medical problems. If patient is feeling up to it, and remains stable, and GI is not concerned, will do as GI f/u. PUD anDVT Px untile INR is therapeutic. Past Patient History - Infectious Disease Hx of Infectious Diseases: None - Tetanus Immunizations Tetanus Immunization: Unknown - Past Medical History & Family History Past Medical History?: Yes - Past Social History Smoking Status: Never Smoked - CARDIAC Hx Atrial Fibrillation: Yes Hx Cardia Arrhythmia: Yes Hx Congestive Heart Failure: Yes Hx Hypercholesterolemia: Yes Hx Hypertension: Yes - PULMONARY Hx Asthma: Yes Hx Chronic Obstructive Pulmonary Disease (COPD): No - NEUROLOGICAL Hx Neurological Disorder: No - HEENT Hx Cataracts: Yes - RENAL Hx Chronic Kidney Disease: No - ENDOCRINE/METABOLIC Hx Diabetes Mellitus Type 2: Yes Hx Hypothyroidism: No - HEMATOLOGICAL/ONCOLOGICAL Hx AIDS: No Hx Anemia: Yes Hx Blood Transfusions: Yes Hx Blood Transfusion Reaction: No Hx Human Immunodeficiency Virus (HIV): No - INTEGUMENTARY Hx Dermatological Problems: No - MUSCULOSKELETAL/RHEUMATOLOGICAL Hx Arthritis: Yes Hx Falls: Yes Hx Fractures: Yes Hx Rheumatoid Arthritis: No - GASTROINTESTINAL Hx Gastritis: Yes - GENITOURINARY/GYNECOLOGICAL Hx Genitourinary Disorders: No - PSYCHIATRIC Hx Anxiety: Yes Hx Substance Use: No - SURGICAL HISTORY Hx Cataract Extraction: Yes Hx Coronary Artery Bypass Graft: Yes Hx Coronary Stent: Yes Hx Orthopedic Surgery: Yes (Back) Other/Comment: Right leg veins Sx - ANESTHESIA Hx Anesthesia: Yes Hx Anesthesia Reactions: No Hx Malignant Hyperthermia: No Meds Allergies/Adverse Reactions: Allergies Allergy/AdvReac Type Severity Reaction Status Date / Time dust Allergy Mild RASH Uncoded 02/11/16 15:43 Results - Vital Signs Recent Vital Signs: Last Vital Signs Temp 97.7 F 08/21/16 19:13 Pulse 83 08/21/16 19:13 Resp 20 08/21/16 19:13 BP 112/67 08/21/16 19:13 Pulse Ox 96 08/21/16 19:13 - Labs Result Diagrams: 08/21/16 05:05 08/21/16 05:05 Labs: Laboratory Results - last 24 hr 08/21/16 08/21/16 08/21/16 05:05 05:05 05:05 WBC 6.4 RBC 4.19 Hgb 12.8 Hct 38.3 MCV 91.3 MCH 30.6 MCHC 33.5 RDW 14.9 H Plt Count 136 PT 18.0 H INR 1.73 H APTT 40.0 H Sodium 135 Potassium 4.0 Chloride 89 L Carbon Dioxide 32 H Anion Gap 18 BUN 32 H Creatinine 0.8 Est GFR ( Amer) > 60 Est GFR (Non-Af Amer) > 60 POC Glucose (mg/dL) Random Glucose 45 L Calcium 9.9 Phosphorus 4.5 Magnesium 2.1 Total Bilirubin 0.9 AST 59 H D ALT 45 Alkaline Phosphatase 133 H Total Protein 8.1 Albumin 4.1 Globulin 3.9 Albumin/Globulin Ratio 1.0 08/21/16 08/21/16 08/21/16 05:44 06:10 11:01 WBC RBC Hgb Hct MCV MCH MCHC RDW Plt Count PT INR APTT Sodium Potassium Chloride Carbon Dioxide Anion Gap BUN Creatinine Est GFR ( Amer) Est GFR (Non-Af Amer) POC Glucose (mg/dL) 39 L 86 160 H Random Glucose Calcium Phosphorus Magnesium Total Bilirubin AST ALT Alkaline Phosphatase Total Protein Albumin Globulin Albumin/Globulin Ratio 08/21/16 15:53 WBC RBC Hgb Hct MCV MCH MCHC RDW Plt Count PT INR APTT Sodium Potassium Chloride Carbon Dioxide Anion Gap BUN Creatinine Est GFR ( Amer) Est GFR (Non-Af Amer) POC Glucose (mg/dL) 235 H Random Glucose Calcium Phosphorus Magnesium Total Bilirubin AST ALT Alkaline Phosphatase Total Protein Albumin Globulin Albumin/Globulin Ratio
[2016-08-21] MEDS ORDERED: Enoxaparin 40 mg Syringe SC ONE (23:00)
--- NOTE | 2016-08-21 23:12 | CP.PCM.CON ---
History of Present Illness - History of Present Illness History of Present Illness: CC: Abdominal pain. HPI: Mrs. Edmonds is a pleasant 81 year old female, accompanied by her daughter, who has a PMH of CAD, s/p CABG, DM atrial fibrillation, CHF and mitral regurgitation who presents to [facility] for evaluation of abdominal pain which she states is associated with food and elevated blood glucose levels. The pain is a burning sensation and is not associated with nausea, vomiting or diarrhea. As such she has had poor PO intake in an effort to avoid hyperglycemia. She has had a GI workup many years ago and does not know of any significant abnormalities. From a cardiac point she has no complaints of chest pain or dyspnea and is compliant with her medications. Review of Systems - Constitutional Constitutional: As Per HPI, Fatigue - EENT Additional comments: Negative. - Cardiovascular Additional comments: Negative. - Respiratory Additional comments: Negative. - Gastrointestinal Gastrointestinal: Abdominal Pain, Heartburn - Genitourinary Additional comments: Negative. - Musculoskeletal Additional comments: Negative. - Integumentary Additional comments: Negative. - Neurological Additional comments: Negative. - Psychiatric Additional comments: Negative. - Endocrine Endocrine: Fatigue - Hematologic/Lymphatic Additional comments: Negative. Past Patient History - Infectious Disease Hx of Infectious Diseases: None - Tetanus Immunizations Tetanus Immunization: Unknown - Past Medical History & Family History Past Medical History?: Yes - Past Social History Smoking Status: Never Smoked Alcohol: None Drugs: Denies Home Situation {Lives}: Alone - CARDIAC Hx Atrial Fibrillation: Yes Hx Cardia Arrhythmia: Yes Hx Congestive Heart Failure: Yes Hx Hypercholesterolemia: Yes Hx Hypertension: Yes - PULMONARY Hx Asthma: Yes Hx Chronic Obstructive Pulmonary Disease (COPD): No - NEUROLOGICAL Hx Neurological Disorder: No - HEENT Hx Cataracts: Yes - RENAL Hx Chronic Kidney Disease: No - ENDOCRINE/METABOLIC Hx Diabetes Mellitus Type 2: Yes Hx Hypothyroidism: No - HEMATOLOGICAL/ONCOLOGICAL Hx AIDS: No Hx Anemia: Yes Hx Blood Transfusions: Yes Hx Blood Transfusion Reaction: No Hx Human Immunodeficiency Virus (HIV): No - INTEGUMENTARY Hx Dermatological Problems: No - MUSCULOSKELETAL/RHEUMATOLOGICAL Hx Arthritis: Yes Hx Falls: Yes Hx Fractures: Yes Hx Rheumatoid Arthritis: No - GASTROINTESTINAL Hx Gastritis: Yes - GENITOURINARY/GYNECOLOGICAL Hx Genitourinary Disorders: No - PSYCHIATRIC Hx Anxiety: Yes Hx Substance Use: No - SURGICAL HISTORY Hx Cataract Extraction: Yes Hx Coronary Artery Bypass Graft: Yes Hx Coronary Stent: Yes Hx Orthopedic Surgery: Yes (Back) Other/Comment: Right leg veins Sx - ANESTHESIA Hx Anesthesia: Yes Hx Anesthesia Reactions: No Hx Malignant Hyperthermia: No Meds Allergies/Adverse Reactions: Allergies Allergy/AdvReac Type Severity Reaction Status Date / Time dust Allergy Mild RASH Uncoded 02/11/16 15:43 - Medications Medications: Current Medications Alprazolam (Xanax) 0.125 mg PO HS PRN PRN Reason: Anxiety Stop: 08/27/16 22:28 Carvedilol (Coreg) 6.25 mg PO Q12H [facility] Last Admin: 08/21/16 22:34 Dose: 6.25 mg Docusate Sodium (Colace) 100 mg PO DAILY [facility] Last Admin: 08/21/16 09:16 Dose: 100 mg Enoxaparin Sodium (Lovenox) 40 mg SC ONCE ONE PRN Reason: Protocol Stop: 08/21/16 23:01 Last Admin: 08/21/16 22:37 Dose: 40 mg Famotidine (Pepcid) 40 mg PO DAILY [facility] Last Admin: 08/21/16 09:18 Dose: 40 mg Furosemide (Lasix) 20 mg PO DAILY [facility] Last Admin: 08/21/16 09:18 Dose: 20 mg Glipizide (Glucotrol) 5 mg PO BID [facility] Last Admin: 08/21/16 18:13 Dose: 5 mg Losartan Potassium (Cozaar) 25 mg PO DAILY [facility] Last Admin: 08/21/16 09:17 Dose: 25 mg Polyethylene Glycol (Miralax) 17 gm PO DAILY PRN PRN Reason: Constipation Potassium Chloride (Klor-Con 10) 10 meq PO QPM [facility] Last Admin: 08/21/16 18:13 Dose: 10 meq Sitagliptin Phosphate (Januvia) 100 mg PO DAILY [facility] Last Admin: 08/21/16 09:18 Dose: 100 mg Warfarin Sodium (Coumadin) 3 mg PO ONCE ONE PRN Reason: Protocol Stop: 08/21/16 23:01 Last Admin: 08/21/16 22:35 Dose: 3 mg Zolpidem Tartrate (Ambien) 5 mg PO HS [facility] Last Admin: 08/20/16 23:12 Dose: 5 mg Physical Exam - Constitutional Appears: Well, Non-toxic, Cachectic - Head Exam Head Exam: NORMAL INSPECTION, NORMOCEPHALIC - Eye Exam Eye Exam: Normal appearance - ENT Exam ENT Exam: Mucous Membranes Moist, Normal External Ear Exam - Neck Exam Neck exam: Positive for: Full Rom, Normal Inspection - Respiratory Exam Respiratory Exam: Clear to Auscultation Bilateral, NORMAL BREATHING PATTERN - Cardiovascular Exam Cardiovascular Exam: Irregular Rhythm, +S1, +S2, Systolic Murmur - GI/Abdominal Exam GI & Abdominal Exam: Normal Bowel Sounds, Soft - Rectal Exam Rectal Exam: Deferred - Extremities Exam Extremities exam: Positive for: full ROM - Back Exam Back exam: NORMAL INSPECTION - Neurological Exam Neurological exam: Alert, Oriented x3 - Psychiatric Exam Psychiatric exam: Normal Affect, Normal Mood - Skin Skin Exam: Dry, Normal Color, Warm Results - Vital Signs Recent Vital Signs: Last Vital Signs Temp 97.7 F 08/21/16 19:13 Pulse 83 08/21/16 22:34 Resp 20 08/21/16 19:13 BP 112/67 08/21/16 22:34 Pulse Ox 96 08/21/16 19:13 - Labs Result Diagrams: 08/21/16 05:05 08/21/16 05:05 Labs: Laboratory Results - last 24 hr 08/21/16 08/21/16 08/21/16 05:05 05:05 05:05 WBC 6.4 RBC 4.19 Hgb 12.8 Hct 38.3 MCV 91.3 MCH 30.6 MCHC 33.5 RDW 14.9 H Plt Count 136 PT 18.0 H INR 1.73 H APTT 40.0 H Sodium 135 Potassium 4.0 Chloride 89 L Carbon Dioxide 32 H Anion Gap 18 BUN 32 H Creatinine 0.8 Est GFR ( Amer) > 60 Est GFR (Non-Af Amer) > 60 POC Glucose (mg/dL) Random Glucose 45 L Calcium 9.9 Phosphorus 4.5 Magnesium 2.1 Total Bilirubin 0.9 AST 59 H D ALT 45 Alkaline Phosphatase 133 H Total Protein 8.1 Albumin 4.1 Globulin 3.9 Albumin/Globulin Ratio 1.0 08/21/16 08/21/16 08/21/16 05:44 06:10 11:01 WBC RBC Hgb Hct MCV MCH MCHC RDW Plt Count PT INR APTT Sodium Potassium Chloride Carbon Dioxide Anion Gap BUN Creatinine Est GFR ( Amer) Est GFR (Non-Af Amer) POC Glucose (mg/dL) 39 L 86 160 H Random Glucose Calcium Phosphorus Magnesium Total Bilirubin AST ALT Alkaline Phosphatase Total Protein Albumin Globulin Albumin/Globulin Ratio 08/21/16 08/21/16 15:53 22:10 WBC RBC Hgb Hct MCV MCH MCHC RDW Plt Count PT INR APTT Sodium Potassium Chloride Carbon Dioxide Anion Gap BUN Creatinine Est GFR ( Amer) Est GFR (Non-Af Amer) POC Glucose (mg/dL) 235 H 96 Random Glucose Calcium Phosphorus Magnesium Total Bilirubin AST ALT Alkaline Phosphatase Total Protein Albumin Globulin Albumin/Globulin Ratio Assessment & Plan - Assessment and Plan (Free Text) Assessment: Abdominal pain, possibly due to PUD CAD CABG HTN Atrial fibrillation DM Plan: Continue present cardiac medications GI evaluation Monitor telemetry Case d/w Dr. Dunlap Will sign off as the patient is stable cardiac garcia, recall as needed - Date & Time Date: 08/21/16 Time: 15:25
[2016-08-22 06:39] LABS: HEMATOCRIT 39.5 % (34.0-47.0); MEAN CORPUSCULAR HEMOGLOBIN 30.9 pg (27.0-31.0); MEAN CORPUSCULAR HGB CONC 33.6 g/dL (33.0-37.0); RED CELL DISTRIBUTION WIDTH 15.4 % (11.5-14.5); WHITE BLOOD COUNT 6.3 K/uL (4.8-10.8)
[2016-08-22 07:14] LABS: PARTIAL THROMBOPLASTIN TIME 39.7 SECONDS (23.3-32.5)
--- NOTE | 2016-08-22 11:43 | IP.NPCORE ---
Heart Failure Core Measure - Heart Failure Ejection Fraction: Less Than 40 % Beta-Per Prescribed: Carvedilol Angiotensin II Receptor Per Prescribed: Yes AnticoagulationTherapy for Atrial Fibrillation/Atrialflutter: Yes
[2016-08-22] MEDS ORDERED: Enoxaparin 40 mg Syringe SC STA (15:56)
[2016-08-22] MEDS: Potassium Chloride 10 mEq ER Tab PO SCH (18:10)
--- NOTE | 2016-08-22 23:39 | CP.PCM.PN ---
Subjective - Subjective Subjective: 81 y/o female with pmhx of chf (diastolic dysfunction) a-fib on coumadin, HTN, DMII, SRINIVAS, admitted for several days of dyspnea and leg swelling. She denies being non compliant with diet and meds. She also has been complaining of epigastric burning. Neg Melena, neg N & V. NDKA Never smoker. Not ETOH. FH: NC She was found to have an elevated BNP in ER. S/ feeling a better today. O/ afebr, vss. Head: neg adeno pos kanu Heart Irr R and R, Ns1s2. Lungs, Much improved. Very faint crackes at bases. No c,c,e Neruo GNF. a/p, as mentioned. NADIA, 2/2 CHF (acute on chronic) A-Fib: DMII, HTN, SRINIVAS. Cont to maintain neg balance. Cardiology consultation appreciated. Cont PO lasix in view of labile BP. GI consult pending. Cont Rx for other medical problems. If patient is feeling up to it, and remains stable, and GI is not concerned, will do as GI f/u. Awaiting transfer to TCU. PUD anDVT Px untile INR is therapeutic. Objective - Vital Signs/Intake and Output Vital Signs (last 24 hours): Temp Pulse Resp BP Pulse Ox 97.7 F 86 18 121/76 98 08/22/16 20:31 08/22/16 22:35 08/22/16 20:31 08/22/16 22:35 08/22/16 20:31 - Medications Medications: Current Medications Alprazolam (Xanax) 0.125 mg PO HS PRN PRN Reason: Anxiety Stop: 08/27/16 22:28 Carvedilol (Coreg) 6.25 mg PO Q12H [facility] Last Admin: 08/22/16 22:35 Dose: 6.25 mg Docusate Sodium (Colace) 100 mg PO DAILY [facility] Last Admin: 08/22/16 09:59 Dose: 100 mg Famotidine (Pepcid) 40 mg PO DAILY [facility] Last Admin: 08/22/16 10:00 Dose: 40 mg Furosemide (Lasix) 20 mg PO DAILY [facility] Last Admin: 08/22/16 09:59 Dose: 20 mg Glipizide (Glucotrol) 5 mg PO BID [facility] Last Admin: 08/22/16 18:10 Dose: 5 mg Losartan Potassium (Cozaar) 25 mg PO DAILY [facility] Last Admin: 08/22/16 09:59 Dose: 25 mg Polyethylene Glycol (Miralax) 17 gm PO DAILY PRN PRN Reason: Constipation Potassium Chloride (Klor-Con 10) 10 meq PO QPM [facility] Last Admin: 08/22/16 18:10 Dose: 10 meq Sitagliptin Phosphate (Januvia) 100 mg PO DAILY [facility] Last Admin: 08/22/16 09:59 Dose: 100 mg Zolpidem Tartrate (Ambien) 5 mg PO HS [facility] Last Admin: 08/22/16 22:35 Dose: 5 mg - Labs Labs: 08/22/16 05:05 08/21/16 05:05 PT 19.1 SECONDS (9.6-11.2) H 08/22/16 05:05 INR 1.84 (0.92-1.08) H 08/22/16 05:05 APTT 39.7 SECONDS (23.3-32.5) H 08/22/16 05:05
[2016-08-23 04:59] VITALS: RESP 18
[2016-08-23 15:23] VITALS: BP 116/68; PULSE 86; TEMP 97.9
[2016-08-24 17:26] VITALS: O2SAT 100
--- NOTE | 2016-08-25 14:21 | CON ---
DATE: 08/22/2016 REFERRING PHYSICIAN: Dr. Dunlap REASON FOR CONSULTATION: Abdominal pain. This is an 81-year-old female with multiple medical problems, has a history of CHF with diastolic dys function, AFib on Coumadin, hypertension, diabetes, CAD. The patient had some dyspnea and leg swelli ng. GI is called small amount of heartburn/reflux. The patient is currently lying in bed, com fortable, in no apparent distress. PAST MEDICAL HISTORY: As above. PAST SURGICAL HISTORY: As above. MEDICATIONS: Have been reviewed. All other systems have been reviewed and negative apart from the HPI. PHYSICAL EXAMINATION: VITAL SIGNS: Here in the hospital, grossly unremarkable. GENERAL: A pleasant, elderly-appearing female, lying in bed, comfortable, in no apparent distress. HEAD: Normocephalic, atraumatic. EYES: Pupils equally reactive to light bilaterally. No conjunctival pallor or icterus. NECK: Supple, normal range of motion, no lymphadenopathy appreciated. LUNGS: Coarse breath sounds bilaterally. HEART: S1, S2. Regular rate and rhythm. No murmurs appreciated. ABDOMEN: Soft, nontender. Bowel sounds present. No rebound, no guarding. RECTAL: Deferred. EXTREMITIES: Pulses bilaterally. SKIN: Warm, dry and intact. NEUROLOGIC: Alert and oriented x 3. LABORATORIES: Have been reviewed. WBCs 6.3, hemoglobin .3. INR 1.8. ASSESSMENT AND PLAN: This is an 81-year-old female with abdominal pain, chest pain and heartburn. P chris for endoscopy electively as an outpatient. This is more likely secondary to coronary disease and congestive heart failure. PPI twice a day. Follow up with me in the office. Thank you for the consult. Piotr Marina MD, PhD cc:Hong Dunlap MD [id number] TT: 08/25/2016 14:20:12 Confirmation # [id number] Dictation # [id number]
== END 2016-08-23 17:37 | DRG 293 ==
LOC: H.ER 12:22 → H.ERHOLD 18:30 → H.TEL 21:33 → OBSVTOIN 22:37
PROVIDERS: ADMIT Internal Medicine Pulmonary Disease; ATTEND Internal Medicine Pulmonary Disease
DX: I11.0 Hypertensive heart disease with heart failure (principal); I48.91 Unspecified atrial fibrillation; E11.9 Type 2 diabetes mellitus without complications; K27.9 Peptic ulcer, site unspecified, unspecified as acute or chronic, without hemorrhage or perforation; Z95.1 Presence of aortocoronary bypass graft; I50.33 Acute on chronic diastolic (congestive) heart failure; E78.00 Pure hypercholesterolemia, unspecified; I25.10 Atherosclerotic heart disease of native coronary artery without angina pectoris; Z95.5 Presence of coronary angioplasty implant and graft; Z79.01 Long term (current) use of anticoagulants; I34.0 Nonrheumatic mitral (valve) insufficiency; J45.909 Unspecified asthma, uncomplicated; F41.1 Generalized anxiety disorder; K29.70 Gastritis, unspecified, without bleeding; Z95.0 Presence of cardiac pacemaker

== ENCOUNTER 2016-08-23 11:25 | Inpatient (IN) | payer OTHER ==
[2016-08-23 16:49] VITALS: BMI 17.2
[2016-08-23] MEDS: Potassium Chloride 10 mEq ER Tab PO SCH (18:52)
[2016-08-24 08:22] LABS: BASO # 0.1 K/uL (0.0-0.2); BASO % 0.9 % (0.0-2.0); EOS % 0.8 % (0.0-4.0); HEMATOCRIT 36.6 % (34.0-47.0); LYMPH # 0.8 K/uL (1.0-4.3); LYMPH % 13.7 % (20.0-40.0); MEAN CELL VOLUME 91.5 fl (81.0-99.0); MEAN CORPUSCULAR HEMOGLOBIN 30.8 pg (27.0-31.0); MEAN CORPUSCULAR HGB CONC 33.6 g/dL (33.0-37.0); MEAN PLATELET VOLUME 9.1 fl (7.2-11.7); MONO # 0.8 K/uL (0.0-0.8); MONO % 13.3 % (0.0-10.0); NEUT # 4.2 K/uL (1.8-7.0); NEUT % 71.3 % (50.0-75.0); RED CELL DISTRIBUTION WIDTH 14.8 % (11.5-14.5); WHITE BLOOD COUNT 5.9 K/uL (4.8-10.8)
[2016-08-24 08:28] LABS: PARTIAL THROMBOPLASTIN TIME 36.6 SECONDS (23.3-32.5)
[2016-08-24 08:34] LABS: BLOOD UREA NITROGEN 27 mg/dl (7-17); CALCIUM 9.3 mg/dL (8.4-10.2); CARBON DIOXIDE 29 mmol/L (22-30); CHLORIDE 94 mmol/L (98-107); GFR AFRICAN-AMERICAN > 60; GLUCOSE,RANDOM 86 mg/dL (65-105); POTASSIUM 4.8 MMOL/L (3.6-5.0); SODIUM 130 mmol/l (132-148)
[2016-08-24] MEDS: Potassium Chloride 10 mEq ER Tab PO SCH (17:26)
[2016-08-25 08:14] LABS: PARTIAL THROMBOPLASTIN TIME 37.1 SECONDS (23.3-32.5)
[2016-08-25] MEDS: Potassium Chloride 10 mEq ER Tab PO SCH (17:12)
--- NOTE | 2016-08-26 11:58 | CP.PCM.HP ---
History of Present Illness - History of Present Illness History of Present Illness: 81 y/o female admitted to for CHF ex. (diastolic acute on chronic) and treated with IV diuretics with good response. PMHx, DMII, HN, DLD,, Osteoarthritis. SRINIVAS. Insomnia. NKDA Never smoker/etoh Meds: See Med list. Patient was transferred here to TCU for Short Term Rehab. Afebrile VSS Head: neg adeno Heart. Irreg Rhythym Reg Rate NS1S2 Neg M Lungs: scaterred crackles which have improved since admission. No C,C,E Neruo GNF a/p Aforementioned DX Cont PO diuretics. Cardiology consult appreciated. Cont AC with coumadin as per INR. Cont Anti HTN. Cont Antidiabetics. Bg monitoring. Cont Rehab as per donation worker. PUD Px. Cont nutritional supplementation. Cont xanax. Cont Ambien Q HS. Past Patient History - Infectious Disease Hx of Infectious Diseases: None - Tetanus Immunizations Tetanus Immunization: Unknown - Past Medical History & Family History Past Medical History?: Yes - Past Social History Smoking Status: Never Smoked - CARDIAC Hx Atrial Fibrillation: Yes Hx Cardia Arrhythmia: Yes Hx Congestive Heart Failure: Yes Hx Hypercholesterolemia: Yes Hx Hypertension: Yes - PULMONARY Hx Asthma: Yes Hx Chronic Obstructive Pulmonary Disease (COPD): No - NEUROLOGICAL Hx Neurological Disorder: No - HEENT Hx Cataracts: Yes - RENAL Hx Chronic Kidney Disease: No - ENDOCRINE/METABOLIC Hx Diabetes Mellitus Type 2: Yes Hx Hypothyroidism: No - HEMATOLOGICAL/ONCOLOGICAL Hx AIDS: No Hx Anemia: Yes Hx Blood Transfusions: Yes Hx Blood Transfusion Reaction: No Hx Human Immunodeficiency Virus (HIV): No - INTEGUMENTARY Hx Dermatological Problems: No - MUSCULOSKELETAL/RHEUMATOLOGICAL Hx Arthritis: Yes Hx Falls: No Hx Fractures: Yes Hx Rheumatoid Arthritis: No Hx Unsteady Gait: Yes - GASTROINTESTINAL Hx Gastritis: Yes - GENITOURINARY/GYNECOLOGICAL Hx Genitourinary Disorders: No - PSYCHIATRIC Hx Anxiety: Yes Hx Substance Use: No - SURGICAL HISTORY Hx Cataract Extraction: Yes Hx Coronary Artery Bypass Graft: Yes Hx Coronary Stent: Yes Hx Orthopedic Surgery: Yes (Back) Other/Comment: Right leg veins Sx - ANESTHESIA Hx Anesthesia: Yes Hx Anesthesia Reactions: No Hx Malignant Hyperthermia: No Meds Allergies/Adverse Reactions: Allergies Allergy/AdvReac Type Severity Reaction Status Date / Time dust Allergy Mild RASH Uncoded 08/23/16 16:49 Results - Vital Signs Recent Vital Signs: Last Vital Signs Temp 97.3 F L 08/26/16 08:06 Pulse 91 H 08/26/16 08:37 Resp 20 08/26/16 08:06 BP 121/73 08/26/16 08:38 Pulse Ox 97 08/26/16 08:06 - Labs Result Diagrams: 08/24/16 06:00 08/24/16 06:00 Labs: Laboratory Results - last 24 hr 08/25/16 08/25/16 08/25/16 13:57 16:43 21:09 PT INR POC Glucose (mg/dL) 179 H 181 H 146 H 08/26/16 08/26/16 08/26/16 06:12 06:28 10:46 PT 25.3 H INR 2.43 H POC Glucose (mg/dL) 138 H 264 H
[2016-08-26] MEDS: Potassium Chloride 10 mEq ER Tab PO SCH (17:25)
[2016-08-27] MEDS: Potassium Chloride 10 mEq ER Tab PO SCH (17:31)
[2016-08-29 15:32] LABS: ALB/GLOB RATIO 1.1 (1.0-2.1); ALKALINE PHOSPHATASE 112 U/L (38-126); ALT/SGPT 42 U/L (9-52); AST/SGOT 46 U/L (14-36); BILIRUBIN,TOTAL 0.8 mg/dl (0.2-1.3); BLOOD UREA NITROGEN 20 mg/dl (7-17); CARBON DIOXIDE 23 mmol/L (22-30); CHLORIDE 91 mmol/L (98-107); GFR AFRICAN-AMERICAN > 60; GLUCOSE,RANDOM 247 mg/dL (65-105); POTASSIUM 4.4 MMOL/L (3.6-5.0); SODIUM 126 mmol/l (132-148); TOTAL PROTEIN 7.8 G/DL (6.3-8.2)
[2016-08-29] MEDS: Potassium Chloride 10 mEq ER Tab PO SCH (17:22)
[2016-08-29] MEDS: Enoxaparin 40 mg Syringe SC SCH (21:26)
[2016-08-30] MEDS: Enoxaparin 40 mg Syringe SC SCH ×2 (08:33→22:07)
[2016-08-30] MEDS: Potassium Chloride 10 mEq ER Tab PO SCH (17:31)
[2016-08-31] MEDS: Enoxaparin 40 mg Syringe SC SCH ×2 (09:51→21:30)
[2016-08-31] MEDS: Potassium Chloride 10 mEq ER Tab PO SCH (17:00)
[2016-09-01] MEDS: Enoxaparin 40 mg Syringe SC SCH ×2 (08:53→21:34)
[2016-09-01] MEDS: Potassium Chloride 10 mEq ER Tab PO SCH (17:16)
[2016-09-02] MEDS: Enoxaparin 40 mg Syringe SC SCH (08:54)
[2016-09-02] MEDS: Potassium Chloride 10 mEq ER Tab PO SCH (17:28)
[2016-09-03] MEDS ORDERED: Dextrose 50% SYRINGE Inj (50 ml) IVP PRN (05:56)
[2016-09-03] MEDS ORDERED: Dextrose 50% SYRINGE Inj (50 ml) IV PRN (05:56)
[2016-09-03] MEDS ORDERED: Glucagon Recombinant 1 mg Inj IM PRN (05:56)
[2016-09-03] MEDS ORDERED: Pantoprazole 40 mg EC Tab PO STA (14:50)
[2016-09-03] MEDS: Psyllium Packet PO SCH (16:45)
[2016-09-03] MEDS: Potassium Chloride 10 mEq ER Tab PO SCH ×2 (17:59→18:00)
[2016-09-03] MEDS: Enoxaparin 40 mg Syringe SC SCH (22:06)
[2016-09-04] MEDS ORDERED: Albuterol-Ipratrop 3 mg / 0.5 (3 ml) UD INH STA ×2 (03:39)
[2016-09-04 07:42] LABS: PARTIAL THROMBOPLASTIN TIME 28.1 SECONDS (23.3-32.5)
[2016-09-04] MEDS: Pantoprazole 40 mg EC Tab PO SCH (09:14)
[2016-09-04] MEDS: Psyllium Packet PO SCH (09:16)
[2016-09-04] MEDS: Enoxaparin 40 mg Syringe SC SCH ×2 (10:35→20:42)
--- NOTE | 2016-09-04 13:39 | RAD ---
HISTORY: sob COMPARISON: Comparison chest 08/21/2016. FINDINGS: LUNGS: Emphysematous changes with coarsened/increased interstitial markings that could represent sequela of concomitant chronic interstitial disease. PLEURA: No significant pleural effusion identified, no pneumothorax apparent. CARDIOVASCULAR: Sternotomy wires and CABG clips again noted. Heart remains enlarged. OSSEOUS STRUCTURES: No significant abnormalities. VISUALIZED UPPER ABDOMEN: Normal. OTHER FINDINGS: None. IMPRESSION: Emphysematous changes with coarsened/increased interstitial markings could represent sequela of concomitant chronic interstitial disease. Curvilinear atelectasis/scarring right lung base. Elevation right hemidiaphragm possibly due to eventration.
[2016-09-04] MEDS: Potassium Chloride 10 mEq ER Tab PO SCH (17:45)
[2016-09-05] MEDS: Pantoprazole 40 mg EC Tab PO SCH (08:56)
[2016-09-05] MEDS: Psyllium Packet PO SCH (08:58)
[2016-09-05] MEDS: Enoxaparin 40 mg Syringe SC SCH ×2 (11:00→20:45)
[2016-09-05 12:24] LABS: HEMATOCRIT 30.2 % (34.0-47.0); MEAN CELL VOLUME 91.4 fl (81.0-99.0); MEAN CORPUSCULAR HEMOGLOBIN 31.4 pg (27.0-31.0); MEAN CORPUSCULAR HGB CONC 34.3 g/dL (33.0-37.0); RED CELL DISTRIBUTION WIDTH 15.2 % (11.5-14.5); WHITE BLOOD COUNT 7.7 K/uL (4.8-10.8)
[2016-09-05] MEDS: Potassium Chloride 10 mEq ER Tab PO SCH (17:42)
[2016-09-06] MEDS: Enoxaparin 40 mg Syringe SC SCH ×2 (08:32→21:23)
[2016-09-06] MEDS: Pantoprazole 40 mg EC Tab PO SCH (08:33)
[2016-09-06] MEDS: Psyllium Packet PO SCH (08:36)
[2016-09-06 09:40] LABS: HEMATOCRIT 29.4 % (34.0-47.0); MEAN CELL VOLUME 91.7 fl (81.0-99.0); MEAN CORPUSCULAR HEMOGLOBIN 31.3 pg (27.0-31.0); MEAN CORPUSCULAR HGB CONC 34.1 g/dL (33.0-37.0); RED CELL DISTRIBUTION WIDTH 15.5 % (11.5-14.5); WHITE BLOOD COUNT 5.3 K/uL (4.8-10.8)
[2016-09-06 16:21] VITALS: RESP 20
[2016-09-06] MEDS: Potassium Chloride 10 mEq ER Tab PO SCH (17:07)
[2016-09-07] MEDS: Psyllium Packet PO SCH (09:56)
[2016-09-07] MEDS: Pantoprazole 40 mg EC Tab PO SCH (09:58)
[2016-09-07] MEDS: Enoxaparin 40 mg Syringe SC SCH ×2 (09:59→21:48)
[2016-09-07] MEDS: Potassium Chloride 10 mEq ER Tab PO SCH (18:22)
[2016-09-08] MEDS: Psyllium Packet PO SCH (09:53)
[2016-09-08] MEDS: Pantoprazole 40 mg EC Tab PO SCH (09:55)
[2016-09-08] MEDS: Enoxaparin 40 mg Syringe SC SCH ×2 (12:19→22:24)
[2016-09-08] MEDS: Potassium Chloride 10 mEq ER Tab PO SCH (18:03)
[2016-09-09] MEDS: Pantoprazole 40 mg EC Tab PO SCH (09:16)
[2016-09-09] MEDS: Psyllium Packet PO SCH (09:17)
[2016-09-09] MEDS: Enoxaparin 40 mg Syringe SC SCH ×2 (09:18→22:16)
[2016-09-09] MEDS: Potassium Chloride 10 mEq ER Tab PO SCH (17:07)
[2016-09-09 19:42] LABS: HEMATOCRIT 28.1 % (34.0-47.0); MEAN CELL VOLUME 93.1 fl (81.0-99.0); MEAN CORPUSCULAR HEMOGLOBIN 30.9 pg (27.0-31.0); MEAN CORPUSCULAR HGB CONC 33.2 g/dL (33.0-37.0); RED CELL DISTRIBUTION WIDTH 15.6 % (11.5-14.5); WHITE BLOOD COUNT 5.9 K/uL (4.8-10.8)
[2016-09-09 20:07] LABS: BLOOD UREA NITROGEN 31 mg/dl (7-17); CALCIUM 9.2 mg/dL (8.4-10.2); CARBON DIOXIDE 31 mmol/L (22-30); CHLORIDE 91 mmol/L (98-107); GFR AFRICAN-AMERICAN > 60; GLUCOSE,RANDOM 165 mg/dL (65-105); POTASSIUM 4.5 MMOL/L (3.6-5.0); SODIUM 130 mmol/l (132-148)
--- NOTE | 2016-09-09 21:55 | CP.PCM.PN ---
Subjective - Subjective Subjective: 81 y/o female admitted to for CHF ex. (diastolic acute on chronic) and treated with IV diuretics with good response. PMHx, DMII, HN, DLD,, Osteoarthritis. SRINIVAS. Insomnia. NKDA Never smoker/etoh Meds: See Med list. Patient has received short term Rehab here in TCU. Afebrile VSS Head: neg adeno Heart. Irreg Rhythym Reg Rate NS1S2 Neg M Lungs: scaterred crackles which have improved since admission. No C,C,E Neruo GNF a/p Aforementioned DX Cont PO diuretics. Cardiology consult appreciated. Cont AC with coumadin as per INR. Cont Anti HTN. Cont Antidiabetics. Bg monitoring. 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 PUD Px. Cont nutritional supplementation. Cont xanax. Cont Ambien Q HS. Possible d/c tomorrow if INR is therapeutic. Home Care. Objective - Vital Signs/Intake and Output Vital Signs (last 24 hours): Temp Pulse Resp BP Pulse Ox 97.7 F 77 20 126/68 97 09/09/16 20:24 09/09/16 20:24 09/09/16 20:24 09/09/16 20:24 09/09/16 20:24 - Medications Medications: Current Medications Carvedilol (Coreg) 6.25 mg PO Q12@0900,2100 [facility] Last Admin: 09/09/16 09:13 Dose: 6.25 mg Cyproheptadine HCl (Periactin) 4 mg PO Q8 [facility] Last Admin: 09/09/16 16:25 Dose: 4 mg Dextrose (Dextrose 50% Inj) 0 ml IV STAT PRN; Protocol PRN Reason: Hyglycemia Protocol Last Admin: 09/03/16 06:15 Dose: 50 ml Dextrose (Dextrose 50% Inj) 50 ml IVP ONCE PRN PRN Reason: Hypoglycemia Dextrose (Glutose 15) 0 gm PO ONCE PRN; Protocol PRN Reason: Hypoglycemia Protocol Docusate Sodium (Colace) 100 mg PO DAILY [facility] Last Admin: 09/09/16 09:16 Dose: 100 mg Enoxaparin Sodium (Lovenox) 40 mg SC Q12 YNES PRN Reason: Protocol Furosemide (Lasix) 20 mg PO DAILY [facility] Last Admin: 09/09/16 09:17 Dose: 20 mg Glucagon (Glucagen Diagnostic Kit) 0 mg IM STAT PRN; Protocol PRN Reason: Hypoglycemia Protocol Lactulose (Enulose) 20 gm PO DAILY PRN PRN Reason: Constipation Losartan Potassium (Cozaar) 25 mg PO DAILY [facility] Last Admin: 09/09/16 09:17 Dose: 25 mg Pantoprazole Sodium (Protonix Ec Tab) 40 mg PO DAILY [facility] Last Admin: 09/09/16 09:16 Dose: 40 mg Potassium Chloride (Klor-Con 10) 10 meq PO QPM [facility] Last Admin: 09/09/16 17:07 Dose: 10 meq Psyllium Hydrophilic Mucilloid (Hydrocil Instant) 1 pkt PO DAILY [facility] Last Admin: 09/09/16 09:17 Dose: Not Given Sitagliptin Phosphate (Januvia) 100 mg PO DAILY [facility] Last Admin: 09/09/16 09:16 Dose: 100 mg Zolpidem Tartrate (Ambien) 5 mg PO HS PRN PRN Reason: Insomnia Last Admin: 09/08/16 21:49 Dose: 5 mg - Labs Labs: 09/09/16 19:38 09/09/16 19:38 PT 16.6 SECONDS (9.6-11.2) H 09/09/16 06:57 INR 1.60 (0.92-1.08) H 09/09/16 06:57 APTT 28.1 SECONDS (23.3-32.5) 09/04/16 06:53
[2016-09-10] MEDS: Pantoprazole 40 mg EC Tab PO SCH (09:08)
[2016-09-10] MEDS: Enoxaparin 40 mg Syringe SC SCH ×2 (09:13→21:40)
[2016-09-10] MEDS: Psyllium Packet PO SCH (16:59)
[2016-09-10] MEDS: Potassium Chloride 10 mEq ER Tab PO SCH (17:44)
[2016-09-11 08:23] VITALS: BP 102/55; PULSE 91; TEMP 98; O2SAT 99
[2016-09-11] MEDS: Pantoprazole 40 mg EC Tab PO SCH (09:06)
[2016-09-11] MEDS: Psyllium Packet PO SCH (13:11)
== END 2016-09-11 15:30 | disposition home or self-care (01) | DRG 293 ==
LOC: H.TCU 16:49 → UNDODISIN 17:40
PROVIDERS: ADMIT Internal Medicine Pulmonary Disease; ATTEND Internal Medicine Pulmonary Disease
PROC: F08Z1FZ Dressing Techniques Treatment using Assistive, Adaptive, Supportive or Protective Equipment (ICD-10-PCS; principal; 2016-08-23)
PROC: F07Z9FZ Gait Training/Functional Ambulation Treatment using Assistive, Adaptive, Supportive or Protective Equipment (ICD-10-PCS; 2016-08-23)
PROC: F07L6FZ Therapeutic Exercise Treatment of Musculoskeletal System - Lower Back / Lower Extremity using Assistive, Adaptive, Supportive or Protective Equipment (ICD-10-PCS; 2016-08-23)
PROC: F07K6FZ Therapeutic Exercise Treatment of Musculoskeletal System - Upper Back / Upper Extremity using Assistive, Adaptive, Supportive or Protective Equipment (ICD-10-PCS; 2016-08-23)
PROC: 5A0935Z Assistance with Respiratory Ventilation, Less than 24 Consecutive Hours (ICD-10-PCS; 2016-08-23)
DX: I11.0 Hypertensive heart disease with heart failure (principal); E11.9 Type 2 diabetes mellitus without complications; I50.32 Chronic diastolic (congestive) heart failure; G47.00 Insomnia, unspecified; M19.90 Unspecified osteoarthritis, unspecified site; F41.1 Generalized anxiety disorder

== ENCOUNTER 2016-09-03 08:11 | Day surgery (SDC) | payer MEDICARE, OTHER ==
[2016-09-03] MEDS ORDERED: Lactated Ringer's 500 ML IV ONE (09:04)
[2016-09-03 09:33] VITALS: BMI 17.5
[2016-09-03] MEDS ORDERED: Propofol 10 mg/ml Inj (20 ML) ONE (09:39)
[2016-09-03] MEDS ORDERED: Etomidate 20 mg/10ml Inj IV ONE (09:39)
[2016-09-03 10:07] VITALS: TEMP 97; O2SAT 100
[2016-09-03 10:22] VITALS: BP 122/55; PULSE 72; RESP 22
== END 2016-09-03 10:30 | disposition home or self-care (01) ==
LOC: H.ENDO 08:11
PROVIDERS: ATTEND Internal Medicine Gastroenterology
DX: R10.13 Epigastric pain (principal); I50.9 Heart failure, unspecified; E11.9 Type 2 diabetes mellitus without complications; M13.88 Other specified arthritis, other site; K31.9 Disease of stomach and duodenum, unspecified
CPT/HCPCS: 43239; 82948; 88305; J2001; J2704; J7120

== ENCOUNTER 2016-10-29 15:56 | Inpatient (IN) | payer MEDICARE, OTHER ==
[2016-10-29 15:57] VITALS: BMI 17.5
[2016-10-29] MEDS ORDERED: Metoprolol 1 mg/ml Inj IVP STA (16:37)
--- NOTE | 2016-10-29 16:42 | ED PDOC ---
HPI: SOB/CHF/COPD Chief Complaint (Provider): shortness of breath History Per: Patient History/Exam Limitations: no limitations Onset/Duration Of Symptoms: Hrs (5) Current Symptoms Are (Timing): Still Present Associated Symptoms: Heart Racing <Valentin Pimentel - Last Filed: 10/29/16 17:25> <Lluvia Angulo - Last Filed: 10/29/16 20:40> Time Seen by Provider: 10/29/16 16:11 Chief Complaint (Nursing): Shortness Of Breath Additional Complaint(s): 81 year old female presents with complaints of shortness of breath that began around 11:00 after eating a meal. Shortness of breath associated with fatigue. She was brought in by EMS called by her neighbor, her home health aide is present. Patient denies recent illness. Endorses she took all of her medications as directed. She had open heart surgery many years ago. Denies dizziness, chest pain, cough, abdominal pain, nausea, vomiting, diarrhea, pedal edema. No sick contacts or recent illness. Patient has hospital bed at home as per [facility], sleeps with head of bed elevated. She lives alone, has home health aides 7 days a week. Haircutter: Dr. Kaufman (Valentin iPmentel) Supervising Attending Note <Valentin Pimentel - Last Filed: 10/29/16 17:25> - Supervising Attending Note The Documented history was done by the: Attending Physician The documented physical exam was done by the: Physician Adjustment Examiner, Attending Physician - Attestation: I have personally seen and examined this patient.: Yes I have fully participated in the care of the patient.: Yes I have reviewed all pertinent clinical information, including history, physical exam and plan: Yes <Lluvia Angulo - Last Filed: 10/29/16 20:40> - Notes: Notes:: CHF and rapid atrial fib. Given dose of IV metoprolol and IV lasix w some improvement. DW Dr Winston Cardiology and Dr Dunlap PMD for hospitalization. On reevaluation, pt serious, but stable for telemetry floor. (Lluvia Angulo ) Past Medical History - Medical History PMH: Anemia, Anxiety, Arthritis, Asthma, Atrial Fibrillation, CAD, Cardia Arrhythmia, CHF, Diabetes, Fractures, Gastritis, HTN, Hypercholesterolemia, Osteoporosis Denies: COPD, HIV, Hypothyroidism, Chronic Kidney Disease, Rheumatoid Arthritis - Surgical History Surgical History: CABG, Coronary Stent, Hernia Repair, Pacemaker, - Family History Family History: States: Unknown Family Hx - Immunization History Hx Tetanus Toxoid Vaccination: No Hx Influenza Vaccination: Yes Hx Pneumococcal Vaccination: Yes <Valentin Pimentel - Last Filed: 10/29/16 17:25> <Lluvia Angulo - Last Filed: 10/29/16 20:40> Vital Signs: Last Vital Signs Temp 98.1 F 10/29/16 16:07 Pulse 99 H 10/29/16 16:45 Resp 16 10/29/16 16:45 BP 131/84 10/29/16 16:45 Pulse Ox 100 10/29/16 17:27 - Home Medications Home Medications: Ambulatory Orders Medication Instructions Recorded Docusate [Colace] 100 mg PO DAILY 08/01/15 Losartan Potassium [Cozaar] 25 mg PO DAILY 05/20/16 SITagliptin [Januvia] 100 mg PO DAILY 05/20/16 Furosemide [Lasix] 20 mg PO DAILY 08/20/16 Potassium Chloride [Klor-Con 10] 10 meq PO DAILY 08/20/16 Zolpidem [Ambien] 5 mg PO HS tab 08/23/16 Lactulose [Enulose] 20 gm PO DAILY PRN 09/11/16 Pantoprazole [Protonix EC Tab] 40 mg PO DAILY ect 09/11/16 Warfarin [Coumadin] 2.5 mg PO DAILY #15 tab 09/11/16 ALPRAZolam [Xanax] 0.125 mg PO HS 10/29/16 Carvedilol [Coreg] 12.5 mg PO Q12H 10/29/16 GlipiZIDE [Glucotrol] 5 mg PO BID 10/29/16 - Allergies Allergies/Adverse Reactions: Allergies Allergy/AdvReac Type Severity Reaction Status Date / Time dust Allergy Mild RASH Uncoded 10/29/16 16:07 Review of Systems ROS Statement: Except As Marked, All Systems Reviewed And Found Negative <Valentin Pimentel - Last Filed: 10/29/16 17:25> Physical Exam - Reviewed Vital Signs Reviewed: Yes (tachycardia) - Physical Exam Appears: Positive for: Uncomfortable Skin: Positive for: Warm, Dry, Pallor. Negative for: Diaphoresis Eye Exam: Positive for: Normal appearance Cardiovascular/Chest: Positive for: Chest Non Tender, Murmur, Tachycardia, Irregularly Irregular. Negative for: JVD Respiratory: Positive for: Rales (bilaterally, extending to upper lung mast.) , Respiratory Distress (mild). Negative for: Rhonchi, Wheezing Gastrointestinal/Abdominal: Positive for: Soft. Negative for: Tenderness, Distended, Guarding Extremity: Positive for: Other (pedal pulses nonpalpable). Negative for: Tenderness, Pedal Edema Neurologic/Psych: Positive for: Alert, wood flooring specialist II-XII, Oriented. Negative for: Motor/Sensory Deficits <Valentin Pimentel - Last Filed: 10/29/16 17:25> - ECG ECG Rhythm: Positive for: Atrial Fibrillation (with rapid ventricular response) , Left Bundle Branch Block O2 Sat by Pulse Oximetry: 100 <Valentin Pimentel - Last Filed: 10/29/16 17:25> - Laboratory Results Result Diagrams: 10/29/16 16:32 10/29/16 16:32 <Lluvia Angulo - Last Filed: 10/29/16 20:40> - Progress ED Course And Treament: Afib with RVR and likely CHF exacerbation * o2 via NC PRN * CBC * CMP * BNP * MAG * PHOS * TROPONINS * COAGS * CXR * EKG * LASIX 20MG * LOPRESSOR 5MG Reassess Case d/w Dr. Angulo who agrees with assessment and plan delineated above. (Valentin Pimentel) Disposition - Patient ED Disposition Is Patient to be Admitted: Transfer of Care - Disposition Disposition Time: 17:27 Patient Signed Over To: Lluvia Angulo <Valentin Pimentel - Last Filed: 10/29/16 17:25> Counseled Patient/Family Regarding: Studies Performed, Diagnosis - Pt Status Changed To: Hospital Disposition Of: Inpatient - Admit Certification Admit to Inpatient:: After my assessment, the patient will require hospitalization for at least two midnights. This is because of the severity of symptoms shown, intensity of services needed, and/or the medical risk in this patient being treated as an outpatient. - POA Present On Arrival: None <Lluvia Angulo - Last Filed: 10/29/16 20:40> - Clinical Impression Clinical Impression: Acute exacerbation of CHF (congestive heart failure) - Disposition Condition: SERIOUS
[2016-10-29] MEDS ORDERED: Metoprolol 1 mg/ml Inj IVP ONE (17:34)
[2016-10-29 17:38] LABS: BASO % 0.6 % (0.0-2.0); EOS % 0.5 % (0.0-4.0); HEMOGLOBIN 11.8 g/dL (12.0-16.0); LYMPH # 0.7 K/uL (1.0-4.3); LYMPH % 9.1 % (20.0-40.0); MEAN CORPUSCULAR HEMOGLOBIN 29.2 pg (27.0-31.0); MEAN CORPUSCULAR HGB CONC 32.1 g/dL (33.0-37.0); MEAN PLATELET VOLUME 9.9 fl (7.2-11.7); MONO # 0.8 K/uL (0.0-0.8); MONO % 10.3 % (0.0-10.0); NEUT # 5.9 K/uL (1.8-7.0); NEUT % 79.5 % (50.0-75.0); PLATELET COUNT 132 K/uL (130-400); RBC 4.02 Mil/uL (3.80-5.20); RED CELL DISTRIBUTION WIDTH 15.6 % (11.5-14.5); WHITE BLOOD COUNT 7.4 K/uL (4.8-10.8)
--- NOTE | 2016-10-29 17:57 | RAD ---
HISTORY: sob COMPARISON: 09/04/2016 FINDINGS: LUNGS: Examination limited by oblique positioning. No acute infiltrate. PLEURA: No evidence of pleural effusion or pneumothorax. Nonspecific elevation of right hemidiaphragm. CARDIOVASCULAR: Status post CABG. Mild congestive change. OSSEOUS STRUCTURES: No significant abnormalities. VISUALIZED UPPER ABDOMEN: Normal. OTHER FINDINGS: None. IMPRESSION: No acute infiltrate. Mild congestive change.
[2016-10-29 18:13] LABS: ALB/GLOB RATIO 0.9 (1.0-2.1); ALBUMIN 4.1 g/dL (3.5-5.0); BLOOD UREA NITROGEN 21 mg/dl (7-17); CALCIUM 9.5 mg/dL (8.4-10.2); GFR AFRICAN-AMERICAN > 60; GFR NON-AFRICAN AMERICAN > 60; MAGNESIUM 1.9 MG/DL (1.6-2.3)
[2016-10-29 18:14] LABS: ALT/SGPT 26 U/L (9-52); AST/SGOT 45 U/L (14-36)
[2016-10-29 19:06] LABS: B-TYPE NATRIURETIC PEPTIDE 5380 pg/ml (0-900)
[2016-10-29 20:33] LABS: BANDS 1 % (0-2); EOSINOPHIL 1 % (0-7); LYMPHOCYTE 12 % (20-50); MONOCYTE 10 % (0-10); NEUTROPHIL 76 % (42-75); TOTAL CELLS COUNTED 100
[2016-10-29 20:34] LABS: ANISOCYTOSIS SLIGHT; GIANT PLATELETS PRESENT; LARGE PLATELETS PRESENT; OVALOCYTES SLIGHT; POIKILOCYTOSIS SLIGHT
[2016-10-29 20:35] LABS: PLATELET ESTIMATE NORMAL (NORMAL)
[2016-10-29 21:12] LABS: INR 1.9 (0.9-1.2); PARTIAL THROMBOPLASTIN TIME 34.9 Seconds (25.6-37.1); PROTHROMBIN TIME 21.6 Seconds (9.8-13.1)
[2016-10-30 07:36] LABS: HEMOGLOBIN 10.6 g/dL (12.0-16.0); MEAN CELL VOLUME 90.5 fl (81.0-99.0); MEAN CORPUSCULAR HEMOGLOBIN 29.5 pg (27.0-31.0); MEAN CORPUSCULAR HGB CONC 32.6 g/dL (33.0-37.0); RBC 3.59 Mil/uL (3.80-5.20); RED CELL DISTRIBUTION WIDTH 15.7 % (11.5-14.5); WHITE BLOOD COUNT 4.7 K/uL (4.8-10.8)
[2016-10-30 07:46] LABS: INR 2.1 (0.9-1.2); PROTHROMBIN TIME 24.1 Seconds (9.8-13.1)
[2016-10-30 07:54] LABS: ALBUMIN 3.4 g/dL (3.5-5.0); ALT/SGPT 39 U/L (9-52); AST/SGOT 35 U/L (14-36); BLOOD UREA NITROGEN 19 mg/dl (7-17); GFR AFRICAN-AMERICAN > 60; GFR NON-AFRICAN AMERICAN > 60
[2016-10-30] MEDS: Insulin Regular 100 units/ml SC SCH ×4 (08:30→23:00)
[2016-10-30] MEDS: Potassium Chloride 10 mEq ER Tab PO SCH (08:39)
[2016-10-30] MEDS: Pantoprazole 40 mg EC Tab PO SCH (08:39)
--- NOTE | 2016-10-30 11:02 | CP.PCM.CON ---
History of Present Illness - History of Present Illness History of Present Illness: CC: Dyspnea. HPI: I have been requested on cardiac consultation by Dr. Dunlap on Mrs. Edmonds who is an 81 year old female with a PMH of atrial fibrillation, CHF, MVR, CAD, CABG and CMP who presents with weakness, back pain, dyspnea and palpitations for several days. She is noted to be in afib and with signs and symptoms of CHF exacerbation. Her BP has also been on the low side hence IV lasix held. A chest xray reveals CHF. Labs were reviewed by me personally and management was discussed with the primary care team [employer]. Review of Systems - Constitutional Constitutional: As Per HPI, Malaise, Weakness - EENT Additional comments: Negative. - Cardiovascular Cardiovascular: Chest Pain at Rest, Leg Edema, Orthopnea, Palpitations, Paroxysmal Nocturnal Dyspnea - Respiratory Respiratory: Cough, Dyspnea - Gastrointestinal Gastrointestinal: Nausea - Genitourinary Additional comments: Denies. - Musculoskeletal Musculoskeletal: Muscle Weakness - Integumentary Integumentary: Swelling - Neurological Neurological: Weakness - Psychiatric Additional comments: Anxiety. - Hematologic/Lymphatic Additional comments: Negative. Past Patient History - Infectious Disease Hx of Infectious Diseases: None - Tetanus Immunizations Tetanus Immunization: Unknown - Past Medical History & Family History Past Medical History?: Yes - Past Social History Smoking Status: Never Smoked Alcohol: None - CARDIAC Hx Cardiac Disorders: Yes Hx Atrial Fibrillation: Yes Hx Cardia Arrhythmia: Yes Hx Circulatory Problems: Yes Hx Congestive Heart Failure: Yes Hx Hypercholesterolemia: Yes Hx Hypertension: Yes Hx Pacemaker: No - PULMONARY Hx Asthma: Yes Hx Chronic Obstructive Pulmonary Disease (COPD): No - NEUROLOGICAL Hx Neurological Disorder: No - HEENT Hx HEENT Problems: No - RENAL Hx Chronic Kidney Disease: No - ENDOCRINE/METABOLIC Hx Hypothyroidism: No - HEMATOLOGICAL/ONCOLOGICAL Hx Anemia: Yes Hx Human Immunodeficiency Virus (HIV): No - INTEGUMENTARY Hx Dermatological Problems: No - MUSCULOSKELETAL/RHEUMATOLOGICAL Hx Arthritis: Yes Hx Falls: No Hx Fractures: Yes Hx Osteoporosis: Yes Hx Rheumatoid Arthritis: No - GASTROINTESTINAL Hx Gastritis: Yes - GENITOURINARY/GYNECOLOGICAL Hx Genitourinary Disorders: No - PSYCHIATRIC Hx Anxiety: Yes Hx Substance Use: No - SURGICAL HISTORY Hx Angiogram: Yes Hx Coronary Artery Bypass Graft: Yes Hx Coronary Stent: Yes - ANESTHESIA Hx Anesthesia: Yes Hx Anesthesia Reactions: No Hx Malignant Hyperthermia: No Meds Allergies/Adverse Reactions: Allergies Allergy/AdvReac Type Severity Reaction Status Date / Time dust Allergy Mild RASH Uncoded 10/29/16 16:07 - Medications Medications: Current Medications Alprazolam (Xanax) 0.125 mg PO [facility] Stop: 11/06/16 22:01 Carvedilol (Coreg) 12.5 mg PO Q12H [facility] Last Admin: 10/30/16 01:30 Dose: 12.5 mg Docusate Sodium (Colace) 100 mg PO DAILY [facility] Last Admin: 10/30/16 08:36 Dose: 100 mg Furosemide (Lasix) 20 mg IVP DAILY [facility] Last Admin: 10/30/16 08:39 Dose: Not Given Furosemide (Lasix) 20 mg IVP BID [facility] Glipizide (Glucotrol) 5 mg PO BID [facility] Last Admin: 10/30/16 08:37 Dose: Not Given Insulin Human Regular (Humulin R) 0 units SC ACCU-CHECK [facility] PRN Reason: Protocol Last Admin: 10/30/16 08:30 Dose: Not Given Lactulose (Enulose) 20 gm PO DAILY PRN PRN Reason: Constipation Losartan Potassium (Cozaar) 25 mg PO DAILY [facility] Last Admin: 10/30/16 08:36 Dose: Not Given Pantoprazole Sodium (Protonix Ec Tab) 40 mg PO DAILY [facility] Last Admin: 10/30/16 08:39 Dose: 40 mg Potassium Chloride (Klor-Con 10) 10 meq PO DAILY [facility] Last Admin: 10/30/16 08:39 Dose: 10 meq Sitagliptin Phosphate (Januvia) 100 mg PO DAILY [facility] Last Admin: 10/30/16 08:38 Dose: Not Given Zolpidem Tartrate (Ambien) 5 mg PO [facility] Physical Exam - Constitutional Appears: Non-toxic, No Acute Distress, Cachectic - Head Exam Head Exam: NORMAL INSPECTION, NORMOCEPHALIC - Eye Exam Eye Exam: Normal appearance Pupil Exam: PERRL - ENT Exam ENT Exam: Mucous Membranes Moist - Neck Exam Additional comments: 7 cm JVD. - Respiratory Exam Respiratory Exam: Rales - Cardiovascular Exam Cardiovascular Exam: Irregular Rhythm, +S1, +S2, Systolic Murmur - GI/Abdominal Exam GI & Abdominal Exam: Soft - Rectal Exam Rectal Exam: Deferred - Extremities Exam Extremities exam: Positive for: pedal edema - Back Exam Back exam: NORMAL INSPECTION - Neurological Exam Neurological exam: Alert, Normal Gait - Psychiatric Exam Psychiatric exam: Anxious - Skin Skin Exam: Normal Color, Warm Results - Vital Signs Recent Vital Signs: Last Vital Signs Temp 97.6 F 10/30/16 08:09 Pulse 70 10/30/16 09:00 Resp 18 10/30/16 08:09 BP 90/48 L 10/30/16 08:39 Pulse Ox 100 10/30/16 08:09 - Labs Result Diagrams: 10/31/16 05:25 10/31/16 05:25 Labs: Laboratory Results - last 24 hr 10/29/16 10/29/16 10/30/16 20:30 23:16 00:30 WBC RBC Hgb Hct MCV MCH MCHC RDW Plt Count PT 21.6 H INR 1.9 H APTT 34.9 Sodium Potassium Chloride Carbon Dioxide Anion Gap BUN Creatinine Est GFR ( Amer) Est GFR (Non-Af Amer) POC Glucose (mg/dL) 102 Random Glucose Calcium Total Bilirubin AST ALT Alkaline Phosphatase Troponin I < 0.0120 Total Protein Albumin Globulin Albumin/Globulin Ratio 10/30/16 10/30/16 10/30/16 05:20 06:01 06:55 WBC RBC Hgb Hct MCV MCH MCHC RDW Plt Count PT 24.1 H INR 2.1 H APTT Sodium Potassium Chloride Carbon Dioxide Anion Gap BUN Creatinine Est GFR ( Amer) Est GFR (Non-Af Amer) POC Glucose (mg/dL) 48 L 115 H Random Glucose Calcium Total Bilirubin AST ALT Alkaline Phosphatase Troponin I Total Protein Albumin Globulin Albumin/Globulin Ratio 10/30/16 10/30/16 10/30/16 06:55 06:55 08:55 WBC 4.7 L RBC 3.59 L Hgb 10.6 L Hct 32.5 L MCV 90.5 MCH 29.5 MCHC 32.6 L RDW 15.7 H Plt Count 110 L D PT INR APTT Sodium 132 Potassium 3.7 Chloride 92 L Carbon Dioxide 31 H Anion Gap 13 BUN 19 H Creatinine 0.6 L Est GFR ( Amer) > 60 Est GFR (Non-Af Amer) > 60 POC Glucose (mg/dL) Random Glucose 159 H Calcium 9.0 Total Bilirubin 0.6 AST 35 ALT 39 Alkaline Phosphatase 102 Troponin I 0.0170 Total Protein 6.7 Albumin 3.4 L Globulin 3.3 Albumin/Globulin Ratio 1.0 Assessment & Plan - Assessment and Plan (Free Text) Assessment: CHF, acute on chronic systolic dysfunction. Atrial fibrillation, rate controlled. CAD, CABG, stable. HTN. Mitral regurgitation. Plan: IV lasix 20 mg BID. Continue warfarin. Continue present medical regimen. Will follow. Thank you. - Date & Time Date: 10/30/16 Time: 11:00
--- NOTE | 2016-10-30 12:48 | CARD ---
APPROVED REPORT EKG Measurement Heart [id number] <Conclusion> Atrial fibrillation Left bundle branch block Abnormal ECG
--- NOTE | 2016-10-30 13:05 | CARD ---
APPROVED REPORT EKG Measurement Heart [id number] <Conclusion> Atrial fibrillation with rapid ventricular response Left bundle branch block Abnormal ECG
--- NOTE | 2016-10-30 14:37 | CARD ---
APPROVED REPORT EXAM: Two-dimensional and M-mode echocardiogram with Doppler and color Doppler. Other Information Quality : ExcellentRhythm : Bradycardia INDICATION Congestive Heart Failure Surgery/Intervention CABD DIMENSIONS IVSd1.28 (0.7-1.1cm)LVDd4.76 (3.9-5.9cm) LVOT Diameter2.23 (1.8-2.4cm)PWd0.90 (0.7-1.1cm) IVSs1.35 (0.8-1.2cm)LVDs3.78 (2.5-4.0cm) FS (%) 20.5 %PWs1.04 (0.8-1.2cm) LVEF (%)20.0 (>50%) M-Mode DIMENSIONS Left Atrium (MM)6.18 (2.5-4.0cm)IVSd1.06 (0.7-1.1cm) Aortic Root3.00 (2.2-3.7cm)LVDd4.76 (4.0-5.6cm) Aortic Cusp Exc.1.56 (1.5-2.0cm)PWd0.82 (0.7-1.1cm) IVSs1.59 cmFS (%) 29 % LVDs3.38 (2.0-3.8cm)PWs1.35 cm Mitral Valve E/A ratio0.0 TDI E/Lateral E'0.0E/Medial E'0.0 Pulmonary Valve PV Peak Rmehgvmb716.2cm/s Tricuspid Valve TR Peak [id number]/sRAP [id number] Peak Gr.25mmHg [id number] LEFT VENTRICLE The Left Ventricle is moderately dilated. There is normal left ventricular wall thickness. The systolic function is severely impaired. There is global hypokinesis of the left ventricle. A Fib No left ventricle thrombus noted on this study. RIGHT VENTRICLE The right ventricle is moderately to severely dilated. There is normal right ventricular wall thickness. RV Systolic function is moderately to severely reduced. ATRIA The left atrium is severely dilated. The right atrium is severely dilated. AORTIC VALVE The aortic valve is mildly thickened. There is trace aortic regurgitation. There is no aortic valvular stenosis. MITRAL VALVE The mitral valve is mildly thickened. There is no mitral valve stenosis. Mitral regurgitation is severe. The mitral regurgitant jet is eccentrically directed. TRICUSPID VALVE The tricuspid valve is normal in structure There is mild tricuspid regurgitation. There is mild pulmonary hypertension. PULMONIC VALVE The pulmonary valve is normal in structure There is mild pulmonic valvular regurgitation. GREAT VESSELS The aortic root is normal in size. The IVC was not visualized. PERICARDIAL EFFUSION The pericardium appears normal. <Conclusion> Four chamber dilatation with severly reduced systolic function of both Ventricles Mitral regurgitation is severe. There is mild tricuspid regurgitation. There is mild pulmonary hypertension.
--- NOTE | 2016-10-30 21:51 | CP.PCM.HP ---
History of Present Illness - History of Present Illness History of Present Illness: Patient seen and examined, full H & P to follow. ARF CHF A-Fib with RVR DMII HTN Cont present course of treatment. Present on Admission - Present on Admission Any Indicators Present on Admission: No Past Patient History - Infectious Disease Hx of Infectious Diseases: None - Tetanus Immunizations Tetanus Immunization: Unknown - Past Medical History & Family History Past Medical History?: Yes - Past Social History Smoking Status: Never Smoked - CARDIAC Hx Atrial Fibrillation: Yes Hx Cardia Arrhythmia: Yes Hx Congestive Heart Failure: Yes Hx Hypercholesterolemia: Yes Hx Hypertension: Yes Hx Pacemaker: Yes - PULMONARY Hx Asthma: Yes Hx Chronic Obstructive Pulmonary Disease (COPD): No - NEUROLOGICAL Hx Neurological Disorder: No - HEENT Hx HEENT Problems: No - RENAL Hx Chronic Kidney Disease: No - ENDOCRINE/METABOLIC Hx Hypothyroidism: No - HEMATOLOGICAL/ONCOLOGICAL Hx Anemia: Yes Hx Human Immunodeficiency Virus (HIV): No - INTEGUMENTARY Hx Dermatological Problems: No - MUSCULOSKELETAL/RHEUMATOLOGICAL Hx Arthritis: Yes Hx Falls: No Hx Fractures: Yes Hx Osteoporosis: Yes Hx Rheumatoid Arthritis: No - GASTROINTESTINAL Hx Gastritis: Yes - GENITOURINARY/GYNECOLOGICAL Hx Genitourinary Disorders: No - PSYCHIATRIC Hx Anxiety: Yes Hx Substance Use: No - SURGICAL HISTORY Hx Coronary Artery Bypass Graft: Yes Hx Coronary Stent: Yes - ANESTHESIA Hx Anesthesia: Yes Hx Anesthesia Reactions: No Hx Malignant Hyperthermia: No Meds Home Medications: Home Medication List Medication Instructions Recorded Confirmed Type Insulin Human Regular [HumuLIN R] 0 units SC ACCU-CHECK ml 11/01/16 Rx Allergies/Adverse Reactions: Allergies Allergy/AdvReac Type Severity Reaction Status Date / Time dust Allergy Mild RASH Uncoded 11/01/16 14:58 Results - Vital Signs Recent Vital Signs: Last Vital Signs Temp 97.8 F 10/30/16 20:03 Pulse 77 10/30/16 20:03 Resp 18 10/30/16 20:03 BP 110/54 L 10/30/16 20:03 Pulse Ox 99 10/30/16 20:03 - Labs Result Diagrams: 11/01/16 06:56 11/01/16 06:56 Labs: Laboratory Results - last 24 hr 10/29/16 10/30/16 10/30/16 23:16 00:30 05:20 WBC RBC Hgb Hct MCV MCH MCHC RDW Plt Count PT INR Sodium Potassium Chloride Carbon Dioxide Anion Gap BUN Creatinine Est GFR ( Amer) Est GFR (Non-Af Amer) POC Glucose (mg/dL) 102 48 L Random Glucose Calcium Total Bilirubin AST ALT Alkaline Phosphatase Troponin I < 0.0120 Total Protein Albumin Globulin Albumin/Globulin Ratio 10/30/16 10/30/16 10/30/16 06:01 06:55 06:55 WBC 4.7 L RBC 3.59 L Hgb 10.6 L Hct 32.5 L MCV 90.5 MCH 29.5 MCHC 32.6 L RDW 15.7 H Plt Count 110 L D PT 24.1 H INR 2.1 H Sodium Potassium Chloride Carbon Dioxide Anion Gap BUN Creatinine Est GFR ( Amer) Est GFR (Non-Af Amer) POC Glucose (mg/dL) 115 H Random Glucose Calcium Total Bilirubin AST ALT Alkaline Phosphatase Troponin I Total Protein Albumin Globulin Albumin/Globulin Ratio 10/30/16 10/30/16 10/30/16 06:55 08:55 11:13 WBC RBC Hgb Hct MCV MCH MCHC RDW Plt Count PT INR Sodium 132 Potassium 3.7 Chloride 92 L Carbon Dioxide 31 H Anion Gap 13 BUN 19 H Creatinine 0.6 L Est GFR ( Amer) > 60 Est GFR (Non-Af Amer) > 60 POC Glucose (mg/dL) 154 H Random Glucose 159 H Calcium 9.0 Total Bilirubin 0.6 AST 35 ALT 39 Alkaline Phosphatase 102 Troponin I 0.0170 Total Protein 6.7 Albumin 3.4 L Globulin 3.3 Albumin/Globulin Ratio 1.0 10/30/16 16:04 WBC RBC Hgb Hct MCV MCH MCHC RDW Plt Count PT INR Sodium Potassium Chloride Carbon Dioxide Anion Gap BUN Creatinine Est GFR ( Amer) Est GFR (Non-Af Amer) POC Glucose (mg/dL) 196 H Random Glucose Calcium Total Bilirubin AST ALT Alkaline Phosphatase Troponin I Total Protein Albumin Globulin Albumin/Globulin Ratio
[2016-10-31 06:55] LABS: HEMOGLOBIN 10.6 g/dL (12.0-16.0); MEAN CELL VOLUME 91.3 fl (81.0-99.0); MEAN CORPUSCULAR HEMOGLOBIN 29.3 pg (27.0-31.0); MEAN CORPUSCULAR HGB CONC 32.1 g/dL (33.0-37.0); RBC 3.61 Mil/uL (3.80-5.20); RED CELL DISTRIBUTION WIDTH 15.6 % (11.5-14.5); WHITE BLOOD COUNT 5.2 K/uL (4.8-10.8)
[2016-10-31 07:14] LABS: BLOOD UREA NITROGEN 21 mg/dl (7-17); CALCIUM 8.9 mg/dL (8.4-10.2); GFR AFRICAN-AMERICAN > 60; GFR NON-AFRICAN AMERICAN > 60
[2016-10-31 07:15] LABS: INR 2.3 (0.9-1.2); PARTIAL THROMBOPLASTIN TIME 35.6 Seconds (25.6-37.1); PROTHROMBIN TIME 26.3 Seconds (9.8-13.1)
[2016-10-31 07:17] LABS: B-TYPE NATRIURETIC PEPTIDE 2880 pg/ml (0-900)
[2016-10-31] MEDS: Insulin Regular 100 units/ml SC SCH ×3 (07:30→17:00)
--- NOTE | 2016-10-31 08:46 | PQF GENQUE ---
This form is a permanent part of the medical record 10/31/16 Dr. Winston, Please clarify the type of atrial fibrillation: Documentation of atrial fibrillation with RVR noted on EKG. Metoprolol IVP given in the ER. On Coreg. Clarification of your documentation is requested to better reflect the severity of illness and intensity of treatment of your patient. Indicators present [] Specify: [] [] Specify: [] [] Specify: [] [] Specify: [] Location in the medical record that reflects the above clinical findings: [] Treatment Provided: [] PHYSICIAN'S RESPONSE Please clarify the type of atrial fibrillation: [] Chronic [] Paroxysmal [] Permanent [] Persistent [] Other (please specify type) [] Clinically unable to determine [] Unknown Based on your medical judgment of the clinical indicators outlined above please clarify the following: [] Practitioner response [] If unable to determine, please check the box, sign and date. Present On Admission (POA) Indicator: [] Present at the time of admission [] Not present at the time of admission [] Clinically Undetermined In responding to this query, please exercise your independent professional judgment. The fact that a question is asked does not imply that any particular answer is desired or expected. Thank you for your clarification on this documentation. If you have any questions please call:ext [phone] * Thank you, Vanessa Barajas RN CDMP [facility]
--- NOTE | 2016-10-31 08:49 | PQF CHF ---
This form is a permanent part of the medical record 10/31/16 Dr. Winston, Please specify the type and acuity of heart failure in your progress notes: Admitted with sob. ProBNP 5880. CXR with mild congestive changes. ECHO:EF 20%, MR severe, TR, pulm htn, four chamber dilatation . BP on the low side hence IV Lasix held. Medication includes Coreg Clarification of your documentation is requested to better reflect the severity of illness and intensity of treatment of your patient. Indicators present [x] Diagnosis of CHF and/or history of CHF [x] BNP > 200 [] Imaging Finding of Pulmonary Edema /Pleural Effusions [] Fluid/Volume Overload [] Pitting edema [x] Ejection Fraction < 40% (Indicative of Systolic Heart Failure) [] Ejection Fraction > 40% (Indicative of Diastolic Heart Failure) [] Dyspnea / Orthopenea / Paroxysmal Nocturnal Dyspnea [] Other: Location in the medical record that reflects the above clinical findings: [] Treatment Provided: [x] PHYSICIAN'S RESPONSE Based on your medical judgment of the clinical indicators outlined above, are you treating this patient for a known or suspected: [] Acute CHF [] Systolic [] Diastolic [] Combined [] Chronic CHF [] Systolic [] Diastolic [] Combined [] Acute on Chronic CHF []Systolic [] Diastolic [] Combined [] CHF due hypertension [] Acute systolic []Chronic systolic [] Acute/ chronic systolic [] Other, please indicate: [] [] If Unable to Determine, please check the box, sign and date. Present On Admission (POA) Indicator: [] Present at the time of admission [] Not present at the time of admission [] Clinically Undetermined In responding to this query, please exercise your independent professional judgment. The fact that a question is asked does not imply that any particular answer is desired or expected. Thank you for your clarification on this documentation. If you have any questions please call:ext [phone] * Thank you, Vanessa Barajas RN CDMP [facility]
[2016-10-31] MEDS: Potassium Chloride 10 mEq ER Tab PO SCH (08:54)
[2016-10-31] MEDS: Pantoprazole 40 mg EC Tab PO SCH (08:54)
--- NOTE | 2016-10-31 16:22 | CARD ---
APPROVED REPORT EKG Measurement Heart [id number] <Conclusion> Atrial fibrillation Left bundle branch block Abnormal ECG
--- NOTE | 2016-10-31 18:06 | CP.PCM.PN ---
Subjective - Date & Time of Evaluation Date of Evaluation: 10/31/16 Time of Evaluation: 18:05 - Subjective Subjective: Reason for visit: Dyspnea. Interval history: The patient is accompanied by her son and is resting comfortably with less dyspnea today. She has burning in the epigastric region as well nausea but no vomiting or chest pain. She remains in atrial fibrillation with rate control. Objective - Vital Signs/Intake and Output Vital Signs (last 24 hours): Temp Pulse Resp BP Pulse Ox 97.8 F 80 20 103/65 99 10/31/16 15:36 10/31/16 15:36 10/31/16 15:36 10/31/16 15:36 10/31/16 15:36 - Medications Medications: Current Medications Alprazolam (Xanax) 0.125 mg PO HS [facility] Stop: 11/06/16 22:01 Last Admin: 10/30/16 22:14 Dose: 0.125 mg Carvedilol (Coreg) 12.5 mg PO Q12H [facility] Last Admin: 10/31/16 12:00 Dose: 12.5 mg Docusate Sodium (Colace) 100 mg PO DAILY [facility] Last Admin: 10/31/16 08:54 Dose: 100 mg Furosemide (Lasix) 20 mg IVP BID [facility] Last Admin: 10/31/16 08:55 Dose: 20 mg Glipizide (Glucotrol) 5 mg PO BID [facility] Last Admin: 10/31/16 08:55 Dose: 5 mg Insulin Human Regular (Humulin R) 0 units SC ACCU-CHECK [facility] PRN Reason: Protocol Last Admin: 10/31/16 12:00 Dose: 2 units Lactulose (Enulose) 20 gm PO DAILY PRN PRN Reason: Constipation Losartan Potassium (Cozaar) 25 mg PO DAILY [facility] Last Admin: 10/31/16 08:54 Dose: 25 mg Pantoprazole Sodium (Protonix Ec Tab) 40 mg PO DAILY [facility] Last Admin: 10/31/16 08:54 Dose: 40 mg Potassium Chloride (Klor-Con 10) 10 meq PO DAILY [facility] Last Admin: 10/31/16 08:54 Dose: 10 meq Sitagliptin Phosphate (Januvia) 100 mg PO DAILY [facility] Last Admin: 10/31/16 08:55 Dose: 100 mg Zolpidem Tartrate (Ambien) 5 mg PO [facility] Last Admin: 10/30/16 22:00 Dose: Not Given - Labs Labs: 10/31/16 05:25 10/31/16 05:25 PT 26.3 Seconds (9.8-13.1) H 10/31/16 05:25 INR 2.3 (0.9-1.2) H 10/31/16 05:25 APTT 35.6 Seconds (25.6-37.1) 10/31/16 05:25 - Constitutional Appears: Non-toxic, No Acute Distress, Cachectic - Head Exam Head Exam: NORMAL INSPECTION - Eye Exam Eye Exam: Normal appearance Pupil Exam: PERRL - ENT Exam ENT Exam: Mucous Membranes Moist - Neck Exam Additional comments: 7 cm JVD. - Respiratory Exam Additional comments: Few basilar crackles. - Cardiovascular Exam Cardiovascular Exam: Irregular Rhythm, +S1, +S2, Murmur - GI/Abdominal Exam GI & Abdominal Exam: Soft - Rectal Exam Rectal Exam: Deferred - Extremities Exam Extremities Exam: Full ROM - Back Exam Back Exam: NORMAL INSPECTION - Neurological Exam Neurological Exam: Alert, Oriented x3 - Psychiatric Exam Psychiatric exam: Anxious, Normal Mood - Skin Skin Exam: Dry, Normal Color, Warm Assessment and Plan - Assessment and Plan (Free Text) Assessment: CHF. Dyspnea. Atrial fibrillation. CAD. CABG. Plan: ChangeIV lasix. to PO. Coumadin. Entresto as outpatient. Will follow PRN. Thank you.
[2016-10-31 19:17] VITALS: RESP 18
--- NOTE | 2016-10-31 22:03 | CP.PCM.PN ---
Subjective - Date & Time of Evaluation Date of Evaluation: 10/31/16 Time of Evaluation: 22:00 - Subjective Subjective: ARF CHF A-Fib with RVR DMII HTN S/ Feeling better than when she came in. O/ VSS Afebrile Head: neg adeno, Neg JVD Heart Irregular rhythm regular rate pos M Lunbs bibasilar crackles Abdo s nt pos bs. Ext no c,c,e Neruo gnf Labs see below, Meds see below Cardio f/u. Cont rate control. Cont AC with coumadin. Repeat x-ray in am. will f/u. Objective - Vital Signs/Intake and Output Vital Signs (last 24 hours): Temp Pulse Resp BP Pulse Ox 97.4 F L 86 18 115/71 100 10/31/16 19:16 10/31/16 19:16 10/31/16 19:16 10/31/16 19:16 10/31/16 19:16 - Medications Medications: Current Medications Alprazolam (Xanax) 0.125 mg PO [facility] Stop: 11/06/16 22:01 Last Admin: 10/31/16 21:13 Dose: Not Given Carvedilol (Coreg) 12.5 mg PO Q12H [facility] Last Admin: 10/31/16 12:00 Dose: 12.5 mg Docusate Sodium (Colace) 100 mg PO DAILY [facility] Last Admin: 10/31/16 08:54 Dose: 100 mg Furosemide (Lasix) 20 mg IVP BID [facility] Last Admin: 10/31/16 17:00 Dose: 20 mg Glipizide (Glucotrol) 5 mg PO BID [facility] Last Admin: 10/31/16 18:26 Dose: Not Given Insulin Human Regular (Humulin R) 0 units SC ACCU-CHECK [facility] PRN Reason: Protocol Last Admin: 10/31/16 17:00 Dose: 1 units Lactulose (Enulose) 20 gm PO DAILY PRN PRN Reason: Constipation Losartan Potassium (Cozaar) 25 mg PO DAILY [facility] Last Admin: 10/31/16 08:54 Dose: 25 mg Pantoprazole Sodium (Protonix Ec Tab) 40 mg PO DAILY [facility] Last Admin: 10/31/16 08:54 Dose: 40 mg Potassium Chloride (Klor-Con 10) 10 meq PO DAILY [facility] Last Admin: 07/21/17 08:54 Dose: 10 meq Sitagliptin Phosphate (Januvia) 100 mg PO DAILY [facility] Last Admin: 10/31/16 08:55 Dose: 100 mg Zolpidem Tartrate (Ambien) 5 mg PO HS [facility] Last Admin: 10/31/16 21:13 Dose: Not Given - Labs Labs: 10/31/16 05:25 10/31/16 05:25 PT 26.3 Seconds (9.8-13.1) H 10/31/16 05:25 INR 2.3 (0.9-1.2) H 10/31/16 05:25 APTT 35.6 Seconds (25.6-37.1) 10/31/16 05:25
[2016-11-01] MEDS: Insulin Regular 100 units/ml SC SCH ×3 (00:19→12:31)
[2016-11-01 07:18] LABS: BLOOD UREA NITROGEN 27 mg/dl (7-17); CALCIUM 9.1 mg/dL (8.4-10.2); GFR AFRICAN-AMERICAN > 60; GFR NON-AFRICAN AMERICAN > 60
[2016-11-01 07:21] LABS: HEMOGLOBIN 11.4 g/dL (12.0-16.0); MEAN CELL VOLUME 89.9 fl (81.0-99.0); MEAN CORPUSCULAR HEMOGLOBIN 29.5 pg (27.0-31.0); MEAN CORPUSCULAR HGB CONC 32.9 g/dL (33.0-37.0); RBC 3.86 Mil/uL (3.80-5.20); RED CELL DISTRIBUTION WIDTH 15.8 % (11.5-14.5); WHITE BLOOD COUNT 8.8 K/uL (4.8-10.8)
[2016-11-01 08:24] LABS: PROTHROMBIN TIME 26.4 Seconds (9.8-13.1)
[2016-11-01 08:25] LABS: INR 2.3 (0.9-1.2)
[2016-11-01] MEDS: Potassium Chloride 10 mEq ER Tab PO SCH (08:45)
[2016-11-01] MEDS: Pantoprazole 40 mg EC Tab PO SCH (08:45)
[2016-11-01 12:31] VITALS: BP 117/62; PULSE 83
[2016-11-01 13:29] VITALS: TEMP 97.4; O2SAT 96
== END 2016-11-01 14:48 | DRG 308 ==
LOC: H.ER 15:56 → H.ERHOLD 18:49 → H.TEL 22:36
PROVIDERS: ADMIT Internal Medicine Pulmonary Disease; ATTEND Internal Medicine Pulmonary Disease
DX: I48.91 Unspecified atrial fibrillation (principal); I50.23 Acute on chronic systolic (congestive) heart failure; N17.9 Acute kidney failure, unspecified; I11.0 Hypertensive heart disease with heart failure; I42.9 Cardiomyopathy, unspecified; E11.9 Type 2 diabetes mellitus without complications; Z95.1 Presence of aortocoronary bypass graft; E78.00 Pure hypercholesterolemia, unspecified; I25.10 Atherosclerotic heart disease of native coronary artery without angina pectoris; Z95.0 Presence of cardiac pacemaker; J45.909 Unspecified asthma, uncomplicated; K29.70 Gastritis, unspecified, without bleeding; Z95.5 Presence of coronary angioplasty implant and graft; I34.0 Nonrheumatic mitral (valve) insufficiency; M81.0 Age-related osteoporosis without current pathological fracture

== ENCOUNTER 2016-11-01 12:46 | Inpatient (IN) | payer OTHER ==
[2016-11-01 14:58] VITALS: BMI 16.9
[2016-11-01 15:55] VITALS: RESP 20
[2016-11-01] MEDS: Insulin Regular 100 units/ml SC SCH ×2 (17:37→22:10)
[2016-11-02] MEDS: Insulin Regular 100 units/ml SC SCH ×5 (07:42→22:52)
[2016-11-02 08:37] LABS: HEMATOCRIT 33.4 % (34.0-47.0); MEAN CELL VOLUME 89.5 fl (81.0-99.0); MEAN CORPUSCULAR HEMOGLOBIN 29.8 pg (27.0-31.0); MEAN CORPUSCULAR HGB CONC 33.3 g/dL (33.0-37.0); RED CELL DISTRIBUTION WIDTH 15.8 % (11.5-14.5); WHITE BLOOD COUNT 5.6 K/uL (4.8-10.8)
[2016-11-02] MEDS: Potassium Chloride 10 mEq ER Tab PO SCH (09:06)
[2016-11-02] MEDS: Pantoprazole 40 mg EC Tab PO SCH (09:08)
[2016-11-03] MEDS: Insulin Regular 100 units/ml SC SCH ×4 (06:51→22:29)
[2016-11-03] MEDS: Potassium Chloride 10 mEq ER Tab PO SCH (09:09)
[2016-11-03] MEDS: Pantoprazole 40 mg EC Tab PO SCH (09:10)
--- NOTE | 2016-11-03 22:16 | CP.PCM.HP ---
History of Present Illness - History of Present Illness History of Present Illness: Patient seen and examined; full H & P to follow. Tentative d/c on Wed AM. Present on Admission - Present on Admission Any Indicators Present on Admission: No Past Patient History - Infectious Disease Hx of Infectious Diseases: None - Tetanus Immunizations Tetanus Immunization: Unknown - Past Medical History & Family History Past Medical History?: Yes - Past Social History Smoking Status: Never Smoked - CARDIAC Hx Cardiac Disorders: Yes Hx Atrial Fibrillation: Yes Hx Cardia Arrhythmia: Yes Hx Circulatory Problems: Yes Hx Congestive Heart Failure: Yes Hx Hypercholesterolemia: Yes Hx Hypertension: Yes Hx Pacemaker: Yes - PULMONARY Hx Asthma: Yes Hx Chronic Obstructive Pulmonary Disease (COPD): No - NEUROLOGICAL Hx Neurological Disorder: No - HEENT Hx HEENT Problems: No - RENAL Hx Chronic Kidney Disease: No - ENDOCRINE/METABOLIC Hx Diabetes Mellitus Type 2: Yes Hx Hypothyroidism: No - HEMATOLOGICAL/ONCOLOGICAL Hx Anemia: Yes Hx Human Immunodeficiency Virus (HIV): No - INTEGUMENTARY Hx Dermatological Problems: No - MUSCULOSKELETAL/RHEUMATOLOGICAL Hx Arthritis: Yes Hx Falls: No Hx Fractures: Yes Hx Osteoporosis: Yes Hx Rheumatoid Arthritis: No - GASTROINTESTINAL Hx Gastritis: Yes - GENITOURINARY/GYNECOLOGICAL Hx Genitourinary Disorders: No - PSYCHIATRIC Hx Anxiety: Yes Hx Substance Use: No - SURGICAL HISTORY Hx Angiogram: Yes Hx Coronary Artery Bypass Graft: Yes Hx Coronary Stent: Yes - ANESTHESIA Hx Anesthesia: Yes Hx Anesthesia Reactions: No Hx Malignant Hyperthermia: No Meds Allergies/Adverse Reactions: Allergies Allergy/AdvReac Type Severity Reaction Status Date / Time dust Allergy Mild RASH Uncoded 11/01/16 14:58 Results - Vital Signs Recent Vital Signs: Last Vital Signs Temp 97.5 F L 11/03/16 21:25 Pulse 76 11/03/16 21:25 Resp 20 11/03/16 21:25 BP 120/59 L 11/03/16 21:25 Pulse Ox 97 11/03/16 21:25 - Labs Result Diagrams: 11/02/16 05:30 Labs: Laboratory Results - last 24 hr 11/03/16 11/03/16 11/03/16 05:38 07:00 10:29 PT 28.9 H INR 2.5 H POC Glucose (mg/dL) 99 169 H 11/03/16 11/03/16 16:29 20:47 PT INR POC Glucose (mg/dL) 148 H 180 H
[2016-11-04] MEDS: Insulin Regular 100 units/ml SC SCH ×4 (06:29→23:00)
[2016-11-04] MEDS: Pantoprazole 40 mg EC Tab PO SCH (09:06)
[2016-11-04] MEDS: Potassium Chloride 10 mEq ER Tab PO SCH (09:07)
[2016-11-05 08:07] VITALS: BP 101/54; PULSE 72; O2SAT 98
[2016-11-05] MEDS: Potassium Chloride 10 mEq ER Tab PO SCH (08:55)
[2016-11-05] MEDS: Pantoprazole 40 mg EC Tab PO SCH (08:56)
[2016-11-05] MEDS: Insulin Regular 100 units/ml SC SCH (11:30)
[2016-11-05 11:56] VITALS: TEMP 97
--- NOTE | 2016-12-23 16:05 | HP ---
HISTORY OF PRESENT ILLNESS: The patient was discharged from the hospital to the TCU with an episode of CHF secondary to rapid AFib. She was treated with chronotropic agents as well as diuretics and she responded well. She is now here for some physical therapy, occupational therapy. ALLERGIES: NO KNOWN DRUG ALLERGIES. SOCIAL HISTORY: Never smoker. FAMILY HISTORY: Noncontributory. LABORATORY DATA: Pending. Chest x-ray showed some mild CHF, improved, compared to her admission. PHYSICAL EXAMINATION: VITAL SIGNS: Stable. She is afebrile. HEAD: Negative adenopathy. NECK: Negative JVD. HEART: Regular rate, irregular rhythm. Normal S1 and S2. No murmurs appreciated. LUNGS: Scattered mild crackles at the bases. ABDOMEN: Soft, nontender. Positive bowel sounds. EXTREMITIES: No clubbing. No cyanosis. No edema. NEUROLOGIC: Grossly nonfocal. ASSESSMENT AND PLAN: Continue with the aforementioned treatment plan, diuretics, anticoagulation for her atrial fibrillation, maintain negative balance, monitor I's and O's and daily weights. Continue physical therapy, occupational therapy. Continue antihypertensives. Continue antidiabetics. Hong Dunlap MD
--- NOTE | 2016-12-24 04:02 | DS ---
Admit Date: 11/01/16 Discharge Date: 11/05/16 HISTORY OF PRESENT ILLNESS: Mrs. Edmonds is an 81-year-old female who was admitted for acute respiratory insufficiency secondary to CHF, secondary to rapid AFib, diabetes, and hypertension. The patient was treated with IV diuretics and chronotropic agents to slow down heart rate responded very well. LABORATORY DATA: Labs are within normal limits. PHYSICAL EXAMINATION: VITAL SIGNS: She is afebrile. Vital signs are stable. HEAD: Negative adenopathy. NECK: Negative JVD. HEART: Regular rate, irregular rhythm. Normal S1 and S2. No murmurs appreciated. LUNGS: Scattered crackles, which are chronic at the bases. ABDOMEN: Soft and nontender. Positive bowel sounds. EXTREMITIES: No clubbing. No cyanosis. No edema. NEUROLOGIC: Grossly nonfocal. DIAGNOSTIC DATA: Chest x-ray showed improved CHF. PLAN: Continue medications for chronic medical conditions, antidiabetics, antihypertensives, diuretics, and beta-blockers. Followup with me in my office in one week. Hong Dunlap MD MARTHA
== END 2016-11-05 11:50 | disposition home health service (06) | DRG 293 ==
LOC: H.TCU 15:00
PROVIDERS: ADMIT Internal Medicine Pulmonary Disease; ATTEND Internal Medicine Pulmonary Disease
PROC: F08Z1ZZ Dressing Techniques Treatment (ICD-10-PCS; principal; 2016-11-03)
PROC: F07M6FZ Therapeutic Exercise Treatment of Musculoskeletal System - Whole Body using Assistive, Adaptive, Supportive or Protective Equipment (ICD-10-PCS; 2016-11-03)
DX: I11.0 Hypertensive heart disease with heart failure (principal); I48.91 Unspecified atrial fibrillation; E11.9 Type 2 diabetes mellitus without complications; E78.00 Pure hypercholesterolemia, unspecified; I50.9 Heart failure, unspecified; J45.909 Unspecified asthma, uncomplicated; M81.0 Age-related osteoporosis without current pathological fracture; Z95.0 Presence of cardiac pacemaker; Z95.1 Presence of aortocoronary bypass graft; Z95.5 Presence of coronary angioplasty implant and graft; K29.70 Gastritis, unspecified, without bleeding

== ENCOUNTER 2016-11-29 13:35 | Emergency (ER) | payer MEDICARE, OTHER ==
[2016-11-29 13:35] VITALS: BMI 17.5
[2016-11-29 13:42] VITALS: TEMP 98.6
[2016-11-29 14:40] LABS: BASO % 0.7 % (0.0-2.0); EOS # 0.1 K/uL (0.0-0.7); HEMATOCRIT 34.3 % (34.0-47.0); LYMPH # 0.5 K/uL (1.0-4.3); LYMPH % 9.2 % (20.0-40.0); MEAN CELL VOLUME 87.7 fl (81.0-99.0); MEAN CORPUSCULAR HEMOGLOBIN 29.1 pg (27.0-31.0); MEAN CORPUSCULAR HGB CONC 33.1 g/dL (33.0-37.0); MEAN PLATELET VOLUME 9.7 fl (7.2-11.7); MONO # 0.6 K/uL (0.0-0.8); MONO % 9.9 % (0.0-10.0); NEUT # 4.7 K/uL (1.8-7.0); NEUT % 79.2 % (50.0-75.0); PLATELET COUNT 131 K/uL (130-400); WHITE BLOOD COUNT 5.9 K/uL (4.8-10.8)
[2016-11-29 14:50] LABS: PARTIAL THROMBOPLASTIN TIME 41.4 Seconds (25.6-37.1)
[2016-11-29 15:28] LABS: ALB/GLOB RATIO 1.1 (1.0-2.1); ALKALINE PHOSPHATASE 128 U/L (38-126); ALT/SGPT 40 U/L (9-52); AST/SGOT 43 U/L (14-36); BILIRUBIN,TOTAL 0.8 mg/dl (0.2-1.3); BLOOD UREA NITROGEN 27 mg/dl (7-17); CALCIUM 9.4 mg/dL (8.4-10.2); CARBON DIOXIDE 28 mmol/L (22-30); CHLORIDE 94 mmol/L (98-107); GFR AFRICAN-AMERICAN > 60; GLUCOSE,RANDOM 160 mg/dL (65-105); POTASSIUM 4.8 MMOL/L (3.6-5.0); SODIUM 132 mmol/l (132-148); TOTAL PROTEIN 7.9 G/DL (6.3-8.2)
[2016-11-29 15:50] LABS: BASOPHIL 1 % (0-2); EOSINOPHIL 1 % (0-7); LARGE PLATELETS PRESENT; NEUTROPHIL 79 % (42-75); TOTAL CELLS COUNTED 100
--- NOTE | 2016-11-29 16:21 | RAD ---
HISTORY: SOB COMPARISON: Comparison chest 10/29/2016. Comparison also made with CT scan chest 01/2017 FINDINGS: LUNGS: Persistent but mildly improved pulmonary vascular congestion at asymmetrically more prominent on the right than left. Suspect mild bibasilar atelectasis Persistent elevation right hemidiaphragm could be due to eventration. PLEURA: No significant pleural effusion identified, no pneumothorax apparent. CARDIOVASCULAR: Re- demonstrated are changes of sternotomy and CABG surgery. OSSEOUS STRUCTURES: No significant abnormalities. VISUALIZED UPPER ABDOMEN: Normal. OTHER FINDINGS: None. IMPRESSION: Persistent but slightly improved pulmonary vascular congestion. Suspect mild bibasilar atelectasis. Persistent elevation right hemidiaphragm possibly due to eventration
--- NOTE | 2016-11-29 16:56 | ED PDOC ---
HPI: SOB/CHF/COPD Time Seen by Provider: 11/29/16 13:55 Chief Complaint (Nursing): Shortness Of Breath Chief Complaint (Provider): Rash, SOB History Per: Patient History/Exam Limitations: no limitations Onset/Duration Of Symptoms: Days Current Symptoms Are (Timing): Still Present Current Respiratory Medications: Albuterol, Diuretic Severity: None Associated Symptoms: denies: Fever, Chills, Sweating Similar Symptoms Previously: Similar SOB as previous Additional Complaint(s): Pt presents with itsh rash on the hands and neck. Pt also reports some SOB which is chronic. Past Medical History Reviewed: Historical Data, Nursing Documentation, Vital Signs Vital Signs: Last Vital Signs Temp 98.6 F 11/29/16 13:39 Pulse 98 H 11/29/16 13:39 Resp 19 11/29/16 14:01 BP 129/87 11/29/16 13:39 Pulse Ox 96 11/29/16 16:56 - Medical History PMH: Anemia, Anxiety, Arthritis, Asthma, Atrial Fibrillation, CAD, Cardia Arrhythmia, CHF, Diabetes, Fractures, Gastritis, HTN, Hypercholesterolemia, Osteoporosis Denies: COPD, HIV, Hypothyroidism, Chronic Kidney Disease, Rheumatoid Arthritis - Surgical History Surgical History: CABG, Coronary Stent, Hernia Repair, Pacemaker, - Family History Family History: States: Unknown Family Hx - Immunization History Hx Tetanus Toxoid Vaccination: No Hx Influenza Vaccination: Yes Hx Pneumococcal Vaccination: Yes - Home Medications Home Medications: Ambulatory Orders Medication Instructions Recorded Docusate [Colace] 100 mg PO DAILY 08/01/15 Losartan Potassium [Cozaar] 25 mg PO DAILY 05/20/16 SITagliptin [Januvia] 100 mg PO DAILY 05/20/16 Furosemide [Lasix] 20 mg PO DAILY 08/20/16 Potassium Chloride [Klor-Con 10] 10 meq PO DAILY 08/20/16 Zolpidem [Ambien] 5 mg PO HS tab 08/23/16 Lactulose [Enulose] 20 gm PO DAILY PRN 09/11/16 Pantoprazole [Protonix EC Tab] 40 mg PO DAILY ect 09/11/16 Warfarin [Coumadin] 2.5 mg PO DAILY #15 tab 09/11/16 ALPRAZolam [Xanax] 0.125 mg PO HS 10/29/16 Carvedilol [Coreg] 12.5 mg PO Q12H 10/29/16 GlipiZIDE [Glucotrol] 5 mg PO BID 10/29/16 Insulin Human Regular [HumuLIN R] 0 units SC ACCU-CHECK ml 11/01/16 - Allergies Allergies/Adverse Reactions: Allergies Allergy/AdvReac Type Severity Reaction Status Date / Time dust Allergy Mild RASH Uncoded 11/29/16 13:39 Review of Systems ROS Statement: Except As Marked, All Systems Reviewed And Found Negative Constitutional: Negative for: Fever, Chills Cardiovascular: Negative for: Chest Pain, Edema, Light Headedness Respiratory: Positive for: Shortness of Breath. Negative for: Cough Physical Exam - Reviewed Nursing Documentation Reviewed: Yes Vital Signs Reviewed: Yes - Physical Exam Appears: Positive for: Well, Non-toxic, No Acute Distress Head Exam: Positive for: ATRAUMATIC, NORMAL INSPECTION, NORMOCEPHALIC Skin: Positive for: Warm, Rash (Hand and left shoulder - Dry, erythematous with blanching ). Negative for: Normal Color Eye Exam: Positive for: Normal appearance ENT: Positive for: Normal ENT Inspection Neck: Positive for: Normal, Painless ROM Cardiovascular/Chest: Positive for: Regular Rate, Rhythm Respiratory: Positive for: Normal Breath Sounds. Negative for: Accessory Muscle Use, Respiratory Distress Gastrointestinal/Abdominal: Positive for: Normal Exam, Bowel Sounds, Soft. Negative for: Tenderness Back: Positive for: Normal Inspection Extremity: Positive for: Normal ROM Neurologic/Psych: Positive for: Alert, Oriented - Laboratory Results Result Diagrams: 11/29/16 14:27 11/29/16 15:00 - ECG O2 Sat by Pulse Oximetry: 96 Medical Decision Making Medical Decision Making: Improvement of vascular congestion on CXR. Discussed troponin, proBNP and CXR results with Dr. Dunlap. States patient can take an additional dose of Lasix and follow-up with him on thursday. Disposition - Clinical Impression Clinical Impression: Dermatitis, Chronic congestive heart failure - Patient ED Disposition Is Patient to be Admitted: No - Disposition Referrals: Hong Dunlap MD [Staff Provider] - Disposition: Routine/Home Disposition Time: 17:41 Condition: GOOD Additional Instructions: Please take one extra dose of lasix and see Dr. Ann on thursday.
[2016-11-29 18:32] VITALS: BP 123/78; PULSE 89; RESP 18; O2SAT 98
--- NOTE | 2016-11-30 10:17 | CARD ---
APPROVED REPORT EKG Measurement Heart [id number] <Conclusion> Atrial fibrillation LBBB Abnormal ECG
== END 2016-11-29 18:32 | disposition home or self-care (01) ==
LOC: H.ER 13:35
DX: L30.9 Dermatitis, unspecified (principal); I50.9 Heart failure, unspecified; I48.91 Unspecified atrial fibrillation; J44.9 Chronic obstructive pulmonary disease, unspecified; Z79.01 Long term (current) use of anticoagulants; Z95.0 Presence of cardiac pacemaker; Z95.1 Presence of aortocoronary bypass graft; Z95.5 Presence of coronary angioplasty implant and graft

== ENCOUNTER 2016-12-10 10:41 | Emergency (ER) | payer MEDICARE, OTHER ==
[2016-12-10 10:41] VITALS: BMI 17.5
[2016-12-10 10:47] VITALS: BP 142/77; PULSE 77; RESP 20; TEMP 98.5; O2SAT 100
--- NOTE | 2016-12-10 11:19 | ED PDOC ---
HPI: Skin/Bite Injury Time Seen by Provider: 12/10/16 10:59 Chief Complaint (Nursing): Abnormal Skin Integrity Chief Complaint (Provider): Skin rash History Per: Patient History/Exam Limitations: no limitations Onset/Duration Of Symptoms: Days (3 weeks) Current Symptoms Are (Timing): Still Present Additional History Per: Patient Additional Complaint(s): Has a rash on going for 3 weeks. Is all over her body and is itchy. No pain, dc. No swelling. No chest pain, dyspnea, fever, abd pain, nausea, vomit, diarrhea, headaches, dizziness. No leg pain. Denies any new food, medications , lotion, clothes, or anything new. No weakness. Here recently for same and was not given any meds to go home on. Past Medical History Reviewed: Nursing Documentation, Vital Signs Vital Signs: Last Vital Signs Temp 98.5 F 12/10/16 10:47 Pulse 77 12/10/16 10:47 Resp 20 12/10/16 10:47 BP 142/77 12/10/16 10:47 Pulse Ox 100 12/10/16 10:47 - Medical History PMH: Anemia, Anxiety, Arthritis, Asthma, Atrial Fibrillation, CAD, Cardia Arrhythmia, CHF, Diabetes, Fractures, Gastritis, HTN, Hypercholesterolemia, Osteoporosis Denies: COPD, HIV, Hypothyroidism, Chronic Kidney Disease, Rheumatoid Arthritis - Surgical History Surgical History: CABG, Coronary Stent, Hernia Repair, Pacemaker, - Family History Family History: States: Unknown Family Hx - Living Arrangements Living Arrangements: With Family - Social History Current smoker - smoking cessation education provided: No Alcohol: None Drugs: Denies - Immunization History Hx Tetanus Toxoid Vaccination: No Hx Influenza Vaccination: Yes Hx Pneumococcal Vaccination: Yes - Home Medications Home Medications: Ambulatory Orders Medication Instructions Recorded Docusate [Colace] 100 mg PO DAILY 08/01/15 Losartan Potassium [Cozaar] 25 mg PO DAILY 05/20/16 SITagliptin [Januvia] 100 mg PO DAILY 05/20/16 Furosemide [Lasix] 20 mg PO DAILY 08/20/16 Potassium Chloride [Klor-Con 10] 10 meq PO DAILY 08/20/16 Zolpidem [Ambien] 5 mg PO HS tab 08/23/16 Lactulose [Enulose] 20 gm PO DAILY PRN 09/11/16 Pantoprazole [Protonix EC Tab] 40 mg PO DAILY ect 09/11/16 Warfarin [Coumadin] 2.5 mg PO DAILY #15 tab 09/11/16 ALPRAZolam [Xanax] 0.125 mg PO HS 10/29/16 Carvedilol [Coreg] 12.5 mg PO Q12H 10/29/16 GlipiZIDE [Glucotrol] 5 mg PO BID 10/29/16 Insulin Human Regular [HumuLIN R] 0 units SC ACCU-CHECK ml 11/01/16 DiphenhydrAMINE [Benadryl] 25 mg PO TID PRN 5 Days 12/10/16 predniSONE [predniSONE Tab] 20 mg PO BID 5 Days 12/10/16 - Allergies Allergies/Adverse Reactions: Allergies Allergy/AdvReac Type Severity Reaction Status Date / Time dust Allergy Mild RASH Uncoded 11/29/16 13:39 Review of Systems Constitutional: Negative for: Weakness, Malaise ENT: Negative for: Nose Pain, Nose Congestion Cardiovascular: Negative for: Chest Pain, Palpitations, Edema, Light Headedness Respiratory: Negative for: Cough, Shortness of Breath Gastrointestinal: Negative for: Nausea, Vomiting, Abdominal Pain Musculoskeletal: Negative for: Neck Pain, Shoulder Pain, Back Pain Skin: Positive for: Rash Neurological: Negative for: Weakness, Numbness Physical Exam - Reviewed Nursing Documentation Reviewed: Yes Vital Signs Reviewed: Yes - Physical Exam Appears: Positive for: Non-toxic, No Acute Distress Head Exam: Positive for: ATRAUMATIC, NORMOCEPHALIC Skin: Positive for: Rash (posterior neck, b/l arms, legs, buttox: nontender patches with mild erythema raised areas with no dc; blanching; few patches with scaling (on back of neck).) Eye Exam: Positive for: Normal appearance, EOMI, PERRL ENT: Positive for: Normal ENT Inspection Neck: Positive for: Painless ROM, Supple Cardiovascular/Chest: Positive for: Regular Rate, Rhythm Respiratory: Positive for: Normal Breath Sounds Gastrointestinal/Abdominal: Positive for: Soft. Negative for: Tenderness Back: Negative for: L CVA Tenderness, R CVA Tenderness Extremity: Positive for: Normal ROM. Negative for: Tenderness, Pedal Edema Neurologic/Psych: Positive for: Alert, Oriented - ECG O2 Sat by Pulse Oximetry: 100 Pulse Ox Interpretation: Normal - Progress ED Course And Treament: 1122: Stable. AAOx3. Pain free. Tolerated PO. Will rx for dermatitis prednisone and benadryl. Fu with pcp. Disposition - Clinical Impression Clinical Impression: Dermatitis - Patient ED Disposition Is Patient to be Admitted: No Counseled Patient/Family Regarding: Diagnosis, Need For Followup, Rx Given - Disposition Referrals: Hong Dunlap MD [Staff Provider] - 12/11/16 Disposition: Routine/Home Disposition Time: 11:05 Condition: STABLE Additional Instructions: Return if not better in 3 days. Prescriptions: DiphenhydrAMINE [Benadryl] 25 mg PO TID PRN 5 Days PRN Reason: Itching / Pruritus predniSONE [predniSONE Tab] 20 mg PO BID 5 Days Instructions: Dermatitis (ED) Forms: [employer] (Fijian)
== END 2016-12-10 12:15 | disposition home or self-care (01) ==
LOC: H.ER 10:41
DX: L30.9 Dermatitis, unspecified (principal); E11.9 Type 2 diabetes mellitus without complications; F41.9 Anxiety disorder, unspecified; I10 Essential (primary) hypertension; Z79.01 Long term (current) use of anticoagulants; Z95.0 Presence of cardiac pacemaker; Z95.1 Presence of aortocoronary bypass graft; Z95.5 Presence of coronary angioplasty implant and graft; I25.10 Atherosclerotic heart disease of native coronary artery without angina pectoris

== ENCOUNTER 2017-01-10 12:44 | Emergency (ER) | payer MEDICARE, OTHER ==
[2017-01-10 12:45] VITALS: BMI 17.5
[2017-01-10 12:51] VITALS: RESP 18; TEMP 97.7; O2SAT 100
--- NOTE | 2017-01-10 14:53 | ED PDOC ---
HPI: Female Pain Time Seen by Provider: 01/10/17 12:54 Chief Complaint (Nursing): Female Genitourinary Chief Complaint (Provider): Dysuria History Per: Patient History/Exam Limitations: no limitations Onset/Duration Of Symptoms: Days (2 days) Current Symptoms Are (Timing): Still Present Associated Symptoms: Constipation (3 days) Additional Complaint(s): Patient is an 81 y/o female presenting to the ED with a past medical history of constipation for which she is taking colace and lactulose, complaining of dysuria x 2days with associated constipation x 3days and generalized rash. Patient's daughter notes experiencing same rash and is under the care of a retail pharmacy technician. Daughter claims that she has been given a cream for the rash and completed a biopsy for which she is awaiting results. The patient notes no new complaints for the rash and denies hematuria or any further symptoms. PCP: Hong Dunlap Past Medical History Reviewed: Historical Data, Nursing Documentation, Vital Signs Vital Signs: Last Vital Signs Temp 97.7 F 01/10/17 12:48 Pulse 99 H 01/10/17 12:48 Resp 18 01/10/17 12:48 BP 131/85 01/10/17 12:48 Pulse Ox 100 01/10/17 12:48 - Medical History PMH: Anemia, Anxiety, Arthritis, Asthma, Atrial Fibrillation, CAD, Cardia Arrhythmia, CHF, Diabetes, Fractures, Gastritis, HTN, Hypercholesterolemia, Osteoporosis Denies: COPD, HIV, Hypothyroidism, Chronic Kidney Disease, Rheumatoid Arthritis Other PMH: Constipation - Surgical History Surgical History: CABG, Coronary Stent, Hernia Repair, Pacemaker, - Family History Family History: States: No Known Family Hx, Unknown Family Hx - Social History Current smoker - smoking cessation education provided: No Alcohol: None Drugs: Denies - Immunization History Hx Tetanus Toxoid Vaccination: No Hx Influenza Vaccination: Yes Hx Pneumococcal Vaccination: Yes - Home Medications Home Medications: Ambulatory Orders Medication Instructions Recorded Docusate [Colace] 100 mg PO DAILY 08/01/15 Losartan Potassium [Cozaar] 25 mg PO DAILY 05/20/16 SITagliptin [Januvia] 100 mg PO DAILY 05/20/16 Furosemide [Lasix] 20 mg PO DAILY 08/20/16 Potassium Chloride [Klor-Con 10] 10 meq PO DAILY 08/20/16 Zolpidem [Ambien] 5 mg PO HS tab 08/23/16 Lactulose [Enulose] 20 gm PO DAILY PRN 09/11/16 Pantoprazole [Protonix EC Tab] 40 mg PO DAILY ect 09/11/16 Warfarin [Coumadin] 2.5 mg PO DAILY #15 tab 09/11/16 ALPRAZolam [Xanax] 0.125 mg PO HS 10/29/16 Carvedilol [Coreg] 12.5 mg PO Q12H 10/29/16 GlipiZIDE [Glucotrol] 5 mg PO BID 10/29/16 Insulin Human Regular [HumuLIN R] 0 units SC ACCU-CHECK ml 11/01/16 DiphenhydrAMINE [Benadryl] 25 mg PO TID PRN 5 Days cap 12/10/16 predniSONE [predniSONE Tab] 20 mg PO BID 5 Days tab 12/10/16 Azithromycin [Zithromax] 250 mg PO DAILY #4 tab 01/10/17 - Allergies Allergies/Adverse Reactions: Allergies Allergy/AdvReac Type Severity Reaction Status Date / Time dust Allergy Mild RASH Uncoded 11/29/16 13:39 Review of Systems ROS Statement: Except As Marked, All Systems Reviewed And Found Negative Gastrointestinal: Positive for: Constipation (x 3 days) Genitourinary Female: Positive for: Dysuria (x 2 days). Negative for: Hematuria Skin: Positive for: Rash (generalized) Physical Exam - Reviewed Nursing Documentation Reviewed: Yes Vital Signs Reviewed: Yes - Physical Exam Appears: Positive for: No Acute Distress (appears thin) Head Exam: Positive for: ATRAUMATIC, NORMAL INSPECTION, NORMOCEPHALIC Skin: Positive for: Rash (generalized erythematous macular rash, no induration, no tenderness, edema, or signs of super infection) Cardiovascular/Chest: Positive for: Regular Rate, Rhythm. Negative for: Murmur Respiratory: Positive for: Normal Breath Sounds. Negative for: Respiratory Distress Gastrointestinal/Abdominal: Positive for: Normal Exam, Soft. Negative for: Tenderness Neurologic/Psych: Positive for: Alert, Oriented (x3) - Laboratory Results Result Diagrams: 01/10/17 15:36 01/10/17 15:36 - ECG O2 Sat by Pulse Oximetry: 100 (RA) Pulse Ox Interpretation: Normal Medical Decision Making Medical Decision Making: Time: 1320 Initial Impression: Dysuria, UTI, chronic rash, constipation Initial Plan: -Labs -Urine culture -ED Urine dipstick -Urinalysis -Obstructive series -Reevaluation Scribe Attestation: Documented by Roberto Carlos Perez, acting as a scribe for Sveta Metz MD Provider Scribe Attestation: All medical record entries made by the Scribe were at my direction and personally dictated by me. I have reviewed the chart and agree that the record accurately reflects my personal performance of the history, physical exam, medical decision making, and the department course for this patient. I have also personally directed, reviewed, and agree with the discharge instructions and disposition. Disposition - Clinical Impression Clinical Impression: Infiltrate noted on imaging study - Disposition Referrals: Hong Dunlap MD [Family Provider] - Disposition: Routine/Home Disposition Time: 16:52 Condition: STABLE Additional Instructions: FOLLOW-UP WITH DR. DUNLAP ON THURSDAY. Prescriptions: Azithromycin [Zithromax] 250 mg PO DAILY #4 tab Instructions: Pneumonia (ED) Forms: [employer] (Frisian) Print Language: GEORGIAN
[2017-01-10 14:54] VITALS: BP 137/90; PULSE 91
[2017-01-10 14:59] LABS: RBC URINE 7 /hpf (0-3); URINE BACTERIA RARE (<OCC); URINE BILIRUBIN NEGATIVE (NEGATIVE); URINE BLOOD NEGATIVE (NEGATIVE); URINE COLOR YELLOW (YELLOW); URINE GLUCOSE (UA) NEG (Normal); URINE KETONE NEGATIVE (NEGATIVE); URINE LEUKOCYTE ESTERASE NEG Leu/uL (Negative); URINE PROTEIN NEGATIVE (NEGATIVE); WBC URINE 4 /hpf (0-5)
[2017-01-10 15:40] LABS: BASO # 0.1 K/uL (0.0-0.2); BASO % 0.9 % (0.0-2.0); EOS # 0.1 K/uL (0.0-0.7); EOS % 2.3 % (0.0-4.0); HEMATOCRIT 37.9 % (34.0-47.0); LYMPH # 0.6 K/uL (1.0-4.3); LYMPH % 10.5 % (20.0-40.0); MEAN CELL VOLUME 87.7 fl (81.0-99.0); MEAN CORPUSCULAR HEMOGLOBIN 28.7 pg (27.0-31.0); MEAN CORPUSCULAR HGB CONC 32.7 g/dL (33.0-37.0); MEAN PLATELET VOLUME 9.2 fl (7.2-11.7); MONO # 0.7 K/uL (0.0-0.8); MONO % 10.9 % (0.0-10.0); NEUT # 4.7 K/uL (1.8-7.0); NEUT % 75.4 % (50.0-75.0); RED CELL DISTRIBUTION WIDTH 16.1 % (11.5-14.5); WHITE BLOOD COUNT 6.2 K/uL (4.8-10.8)
[2017-01-10 15:49] LABS: ALB/GLOB RATIO 1.1 (1.0-2.1); ALKALINE PHOSPHATASE 107 U/L (38-126); ALT/SGPT 29 U/L (9-52); AST/SGOT 33 U/L (14-36); BILIRUBIN,TOTAL 0.9 mg/dl (0.2-1.3); BLOOD UREA NITROGEN 23 mg/dl (7-17); CALCIUM 9.7 mg/dL (8.4-10.2); CARBON DIOXIDE 29 mmol/L (22-30); CHLORIDE 93 mmol/L (98-107); GFR AFRICAN-AMERICAN > 60; GLUCOSE,RANDOM 156 mg/dL (65-105); POTASSIUM 4.6 MMOL/L (3.6-5.0); SODIUM 134 mmol/l (132-148); TOTAL PROTEIN 7.8 G/DL (6.3-8.2)
--- NOTE | 2017-01-10 16:41 | RAD ---
PROCEDURE: Radiographs of the chest and abdomen (obstructive series) HISTORY: Constipation COMPARISON: Abdomen pelvis CT exam dated 08/20/2016. TECHNIQUE: AP radiograph of the chest, with upright and supine radiographs of the abdomen. FINDINGS: CHEST: Lungs: Limited linear atelectasis or fibrosis seen at the inferior right lung zone, with the right hemidiaphragm elevated. Borderline patchy left perihilar density. Cardiovascular: Normal size heart. No pulmonary vascular congestion. . Pleura: No pleural fluid. No pneumothorax. Other findings: Sternotomy wires are noted. ABDOMEN AND PELVIS: Bowel: There is a nonobstructive bowel gas pattern appreciated. Gas and retained fecal material scattered throughout the large bowel in a variable fashion. No significant small bowel dilatation is appreciated and there is no air-fluid level formation or free intraperitoneal gas grossly evident. The hepatic flexure is chronically interposed laterally between the right lobe of the liver and the right chest wall. Bones: Unremarkable. Other findings: Patient is status post aortic iliac graft repair presumed abdominal aortic aneurysm. Vascular calcifications seen in the pelvis and right greater than left inguinal regions. Surgical clips identified in the left upper quadrant abdomen. IMPRESSION: 1. Borderline left perihilar infiltrate. A liver event right hemidiaphragm. No pleural effusion bilaterally. No pneumothorax or right sided infiltrate. 2. Nonobstructive bowel gas pattern. A chronically elevated right hemidiaphragm is noted with interposed hepatic flexure between the right lobe liver laterally and the right chest wall. 3. Status post aortic iliac stent graft aortic root abdominal aortic aneurysm repair noted. 4. Surgical clips in the left upper quadrant abdomen with vascular calcifications at the inferior pelvis and bilateral inguinal regions.
== END 2017-01-10 17:23 | disposition home or self-care (01) ==
LOC: H.ER 12:44
DX: N39.0 Urinary tract infection, site not specified (principal); R21 Rash and other nonspecific skin eruption; K59.00 Constipation, unspecified; R30.0 Dysuria; I48.91 Unspecified atrial fibrillation; I10 Essential (primary) hypertension; E78.00 Pure hypercholesterolemia, unspecified; M19.90 Unspecified osteoarthritis, unspecified site